=== PATIENT | female | born 1970 | race Caucasian/White ===

== ENCOUNTER 2019-06-28 14:24 | Inpatient (IN) | payer MEDICARE ==
[2019-06-28] MEDS ORDERED: NS 0.9% 1000 ML** 1,000 ML IV ONE ×2 (14:59→16:05)
--- NOTE | 2019-06-28 15:01 | ED ---
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 She states that she thinks her symptoms are related to her diabetes. she reports polyuria and polyphagia and polydypsia. She reports headache similar to her cluster headaches. Head still hurts and her eyes have an aura around them. Denies any neck pain or photophobia. She reports right flank pain /10. No aggravating or alleviating factors noted. Positive nausea, and vomiting. - History Of Current Complaint Chief Complaint: EDDiabeticProb Time Seen by Provider: 06/28/19 14:47 Hx Obtained From: Patient Onset/Duration: Sudden Onset, Still Present Timing: Constant, Days Severity Currently: Severe Severity Initially: Severe Aggravating Factor(s): nothing Alleviating Factor(s): nothing Associated Signs And Symptoms: Positive: Headache, Vomiting, Other - neg - neck pain, photophobia - Allergies/Home Medications Allergies/Adverse Reactions: Allergies Allergy/AdvReac Type Severity Reaction Status Date / Time No Known Allergies Allergy Verified 12/22/18 09:38 Home Medications: Home Medications Insulin Aspart [Novolog] 100 unit SC SEE INSTRUCTIONS 06/28/19 [History Confirmed 06/28/19] Insulin Glargine,Hum.rec.anlog [Basaglar Kwikpen U-100] 44 unit SUBCUT DAILY 03/09 [History Confirmed 06/28/19] Pregabalin [Lyrica] 75 mg PO BID 06/28/19 [History Confirmed 06/28/19] Propranolol TAB* [Inderal TAB*] 60 mg PO DAILY 06/28/19 [History Confirmed 06/28] Topiramate TAB(*) [Topamax 25 MG tab] 50 mg PO BID 06/28/19 [History Confirmed 06/28/19] PMH/Surg Hx/FS Hx/Imm Hx Endocrine/Hematology History: Reports: Hx Diabetes, Hx Thyroid Disease - HYPO Cardiovascular History: Reports: Hx Hypertension Denies: Hx Pacemaker/ICD History: Denies: Hx Dialysis, Hx Renal Disease Musculoskeletal History: Reports: Hx Arthritis - HANDS AND BACK, Hx Back Problems Sensory History: Reports: Hx Contacts or Glasses - GLASSES Denies: Hx Hearing Aid Opthamlomology History: Reports: Hx Contacts or Glasses - GLASSES Neurological History: Reports: Hx Migraine - CYCLIC WITH MENSES Denies: Other Neuro Impairments/Disorders Psychiatric History: Reports: Hx Anxiety, Hx Eating Disorder - "I binge eat, I think it's the insulin", Hx Depression, Hx Panic Disorder - ANXIETY Denies: Hx of Violent Episodes Against Others - Cancer History Hx Chemotherapy: No Hx Radiation Therapy: No - Surgical History Surgery Procedure, Year, and Place: RT EARDRUM TYMPANOPLASTY(NO IMPLANTS), SPLEEN REMOVED-GALL BLADDER-PANCREAS 80% REMOVAL, [facility] SURGERY right hemilaminectomy Jul 2014, [facility]-TUBAL LIGATION Hx Anesthesia Reactions: No Infectious Disease History: No Infectious Disease History: Denies: Traveled Outside the [place] in Last 30 Days - Family History Known Family History: Negative: Renal Disease - Social History Alcohol Use: None Substance Use Type: Reports: None Smoking Status (MU): Heavy Every Day Tobacco Smoker Type: Cigarettes Amount Used/How Often: 1/2 PACK PER DAY Length of Time of Smoking/Using Tobacco: 25 YRS Have You Smoked in the Last Year: Yes Review of Systems Positive: Chills Eyes: Negative Negative: Photophobia Cardiovascular: Negative Positive: Vomiting Musculoskeletal: Negative - neck pain Skin: Negative Positive: Headache All Other Systems Reviewed And Are Negative: Yes Physical Exam - Summary Physical Exam Summary: VITAL SIGNS: Reviewed. GENERAL: Patient is a well-developed and nourished female who is lying comfortable in the stretcher. Patient is not in any acute respiratory distress. HEAD AND FACE: No signs of trauma. No ecchymosis, hematomas or skull depressions. No sinus tenderness. EYES: PERRLA, EOMI x 2, No injected conjunctiva, no nystagmus, no photophobia. EARS: Hearing grossly intact. Ear canals and tympanic membranes are within normal limits. MOUTH: Dry oral mucosa. NECK: Supple, trachea is midline, no adenopathy, no JVD, no carotid bruit, no c- spine tenderness, neck with full ROM. No meningeal signs. CHEST: Symmetric, no tenderness at palpation. LUNGS: Clear to auscultation bilaterally. No wheezing or crackles. CVS: Regular rate and rhythm, S1 and S2 present, no murmurs or gallops appreciated. ABDOMEN: Soft, positive left flank tenderness. No signs of distention. No rebound, no guarding, and no masses palpated. Bowel sounds are normal. EXTREMITIES: FROM in all major joints, no edema, no cyanosis or clubbing. NEURO: Alert and oriented x 3. No acute neurological deficits. Speech is normal and follows commands. SKIN: Dry and warm. Increased in turgur of the skin. Triage Information Reviewed: Yes Vital Signs On Initial Exam: Initial Vitals Temp Pulse Resp BP Pulse Ox 98.1 F 76 14 73/51 99 06/28/19 14:39 06/28/19 14:39 06/28/19 14:39 06/28/19 14:39 06/28/19 14:39 Vital Signs Reviewed: Yes Procedures - Sedation Patient Received Moderate/Deep Sedation with Procedure: No Diagnostics - Vital Signs Vital Signs Temp Pulse Resp BP Pulse Ox 06/28/19 14:50 92/55 06/28/19 14:48 78 22 97 06/28/19 14:39 98.1 F 76 14 73/51 99 - Laboratory Result Diagrams: 06/29/19 02:58 06/29/19 02:58 Lab Statement: Any lab studies that have been ordered have been reviewed, and results considered in the medical decision making process. - Radiology CXR Radiology Interpretation Completed By: Radiologist Summary of Radiographic Findings: IMPRESSION: No acute process by radiograph. ED Physician has reviewed this report. - CT Brain CT CT Interpretation Completed By: Radiologist Summary of CT Findings: IMPRESSION: No acute intracranial abnormality. ED Physician has reviewed this report. CT A/P CT Interpretation Completed By: Radiologist Summary of CT Findings: IMPRESSION: 1. HYDRONEPHROSIS WITH A 5 MM CALCULUS IN THE MID LEFT URETER NEAR THE PELVIC BRIM. 2. THERE IS AN EDEMATOUS LEFT KIDNEY WITH EXTENSIVE STRANDING OF THE REGIONAL FAT PLANES. A REACTIVE ILEUS IS SUSPECTED. THIS CONSTELLATION OF FINDINGS RAISES SUSPICION FOR SUPERIMPOSED PYELONEPHRITIS (CORRELATE WITH INFLAMMATORY MARKERS). Re-Evaluation - Re-Evaluation First Eval Re-Evaluation Time: 16:11 Comment: Pt is now complaining of left flank pain. 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 She states that she thinks her symptoms are related to her diabetes. she reports polyuria and polyphagia and polydipsia. She reports headache similar to her cluster headaches. Head still hurts and her eyes have an aura around them. Denies any neck pain or photophobia. She reports right flank pain 8/10. No aggravating or alleviating factors noted. Positive nausea, and vomiting. In the ED course the patient was placed in a broadcast producer, 2 IV access was obtained, the patient was started with 2 L of IV fluids since the patient is hypotensive. Blood tests without any significant abnormality except for WBCs of 20.4, absolute neutrophils of 19.4, 14 bands. Sodium 128, potassium 3.3, chloride 91, BUN is 56, creatinine 2.7, glucose 260, lactic acid is 3.6, magnesium 1.1, AST 128, AST is 98, CRP 451, BNP 157. Chest x-ray impression: No active cardiopulmonary disease. In the ED course the patient with Zosyn since seems to be septic. Head CT impression: No acute intracranial pathology. Abdominal and pelvic CT IMPRESSION: 1. HYDRONEPHROSIS WITH A 5 MM CALCULUS IN THE MID LEFT URETER NEAR THE PELVIC BRIM. 2. THERE IS AN EDEMATOUS LEFT KIDNEY WITH EXTENSIVE STRANDING OF THE REGIONAL FAT PLANES. A REACTIVE ILEUS IS SUSPECTED. THIS CONSTELLATION OF FINDINGS RAISES SUSPICION FOR. SUPERIMPOSED PYELONEPHRITIS (CORRELATE WITH INFLAMMATORY MARKERS). At this time I discussed the case with Dr. Cast and he recommended to add Levaquin as well as medical clearance for the OR and admission by the hospitalist. I discussed the case with Amarilys Loo and he medically cleared and accepted the patient for admission. Patient BP is 91/62 wit a MAP of 71. - Diagnoses Provider Diagnoses: Ureteral calculus, left, Pyelonephritis, Sepsis, Acute renal failure, Hypomagnesemia - Physician Notifications Discussed Care Of Patient With: Anatoly Panda - Dr. Panda will admit pt to [facility]. Time Discussed With Above Provider: 18:03 Instructed by Provider To: Admit As Inpatient Discharge ED - Sign-Out/Discharge Documenting (check all that apply): Patient Departure - admit - Discharge Plan Condition: Stable Disposition: ADMITTED TO [facility] - Billing Disposition and Condition Condition: STABLE Disposition: Admitted to [facility] - Attestation Statements Document Initiated by Scribe: Yes Documenting Scribe: Valeriano Hargrove Provider For Whom Scribe is Documenting (Include Credential): Alvarado Chopra MD Scribe Attestation: I, Valeriano Hargrove, scribed for Alvarado Chopra MD on 06/29/19 at 1603. Scribe Documentation Reviewed: Yes Provider Attestation: The documentation as recorded by the scribe, Valeriano Hargrove accurately reflects the service I personally performed and the decisions made by me, Alvarado Chopra MD Status of Scribe Document: Viewed
[2019-06-28 15:22] LABS: Hematocrit 38 % (35-47); Hemoglobin 12.6 g/dL (12.0-16.0); Mean Corpuscular HGB Conc 34 g/dL (31-36); Mean Corpuscular Hemoglobin 32 pg (27-31); Mean Corpuscular Volume 95 fL (80-97); Mean Platelet Volume 8.7 fL (7.4-10.4); Platelet Count 206 10^3/uL (150-450); Red Blood Count 3.96 10^6 /uL (3.70-4.87); Red Cell Distribution Width 14 % (10-15); White Blood Count 20.4 10^3/uL (3.5-10.8)
[2019-06-28 15:40] LABS: ALT 93 U/L (7-52); AST 128 U/L (13-39); Albumin 3.6 g/dL (3.2-5.2); Alkaline Phosphatase 118 U/L (34-104); Anion Gap 12 mmol/L (2-11); BUN/Creatinine Ratio 20.7 (8-20); Blood Urea Nitrogen 56 mg/dL (6-24); C Reactive Protein 451.25 mg/L (<8.01); CO2 Carbon Dioxide 25 mmol/L (22-32); Calcium 9.2 mg/dL (8.6-10.3); Chloride 91 mmol/L (101-111); EGFR African American 22.6 (>60); EGFR Non-African American 18.7 (>60); Globulin 3.5 g/dL (2-4); Glucose 260 mg/dL (70-100); Magnesium 1.1 mg/dL (1.9-2.7); Potassium 3.3 mmol/L (3.5-5.0); Sodium 128 mmol/L (135-145); Total Protein 7.1 g/dL (6.4-8.9)
[2019-06-28] MEDS ORDERED: Potassium Chlor TAB* 20 MEQ TAB.ER PO ONE (16:04)
[2019-06-28] MEDS ORDERED: Magnesium Sulfate 2 GM IV* 2 GM/50 ML BAG IVPB ONE (16:04)
[2019-06-28] MEDS ORDERED: Piperacillin/Tazobac ADVAN(*) 3.375 GM in NS 0.9% 100 ML* 100 ML IVPB ONE (16:06)
[2019-06-28 16:15] LABS: ABS Basophils 0.1 10^3/ul (0-0.2); ABS Eosinophils 0.1 10^3/ul (0-0.6); ABS Lymphocytes 0.4 10^3/ul (1.0-4.8); ABS Monocytes 0.4 10^3/ul (0-0.8); ABS Neutrophils 19.4 10^3/ul (1.5-7.7); Eosinophil % 0.5 %; Lymphocyte % 1.9 %
[2019-06-28 16:16] LABS: Platelet Morphology Large
[2019-06-28] MEDS ORDERED: NS 0.9% 1000 ML** 2,000 ML IV ONE (17:23)
[2019-06-28] MEDS ORDERED: Levofloxacin 500 MG IVPREMIX(* 500 MG/100 ML BAG IVPB ONE (17:43)
[2019-06-28] MEDS ORDERED: Dextrose 50% VIAL 50 ml IV PUSH PRN (18:21)
[2019-06-28] MEDS ORDERED: Iohexol 180 (CONTRAST) 10 ML SDV IV ONE (18:25)
--- NOTE | 2019-06-28 18:33 | ADMNOTE ---
Subjective Date of Service: 06/28/19 Interval History: ADMISSION HISTORY AND PHYSICAL EXAM: Allergies Allergy/AdvReac Type Severity Reaction Status Date / Time No Known Allergies Allergy Verified 12/22/18 09:38 Home Medications Medication Instructions Recorded Confirmed Type Meloxicam 15 mg PO DAILY 07/27/14 06/28/19 History Hydrochlorothiazide TAB* 25 mg PO DAILY 03/16/15 06/28/19 History [Hydrodiuril TAB*] Venlafaxine HCl ER- 300 mg PO DAILY 08/17/15 06/28/19 History Levothyroxine TAB* [Synthroid TAB*] 50 mcg PO 0600 #30 tab 08/22/15 06/28/19 Rx Insulin Aspart [Novolog] 100 unit SC SEE INSTRUCTIONS 06/28/19 06/28/19 History Insulin Glargine,Hum.rec.anlog 44 unit SUBCUT DAILY 06/28/19 06/28/19 History [Basaglar Kwikpen U-100] Pregabalin [Lyrica] 75 mg PO BID 06/28/19 06/28/19 History Propranolol TAB* [Inderal TAB*] 60 mg PO DAILY 06/28/19 06/28/19 History Topiramate TAB(*) [Topamax 25 MG 50 mg PO BID 06/28/19 06/28/19 History tab] HPI: The patient was in her usual state of health until about 3 days ago when she developed L flank pain, N&V. She ate almost nothing the past 2 days. She stayed in bed all day yesterday. Today she was very dizzy when she stood up. Family History: Findings - unremarkable. Social History: Findings - , lives alone. No children. Smoker. No alcohol abuse. Her mother is her SDM. Past Medical History: Unchanged from Admission - Pancreas surgery for pancreatitis, included splenectomy. BTL, Tympanic membrane surgery Review of Systems - Measurements Intake and Output: Intake and Output Last 24 Hours 06/26/19 06/27/19 06/28/19 06/29/19 06:59 06:59 06:59 06:59 Intake Total 4100 Balance 4100 Intake: IV Fluids 4100 - Review of Systems Constitutional Symptoms: Negative: Weight Gain, Weight Loss, Weakness, Fatigue, Fever, Night Sweats, Unexplained Falls, Other Dermatology: Positive: Normal HEENT: Positive: Normal Eyes: Positive: Normal Thyroid: Positive: Normal Pulmonary: Positive: Normal Cardiology: Positive: Faintness Gastroenterology: Positive: Nausea, Vomiting Musculoskeletal: Positive: Joint Pain Endocrinology: Positive: Diabetes Mellitus Hematologic/Lymphatic: Negative: Anemia, Easy Bruising, Hx Leukemia, Hx Lymphoma, Use of Anticoagulant, Use of Antiplatelet Drugs, Other Neurology: Positive: Normal Psychiatry: Positive: Normal Allergic/Immunologic: Negative: Hx Anaphylaxis, Hx Angioedema, Hx Environmental, Hx Seasonal, Asthma, Hx HIV, Immunocompromise, Swollen Glands LymphNodes, Other Objective Active Medications: Dextrose (Dextrose 50% Vial 50 Ml*) 25 ml IV PUSH .FOR FS < 60 - SS PRN PRN Reason: FS < 60 Sodium Chloride (Ns 0.9% 1000 Ml) 2,000 mls @ 1,000 mls/hr IV .PER RATE ONE Stop: 06/28/19 19:22 Last Admin: 06/28/19 17:36 Dose: 2,000 mls/hr Levofloxacin/Dextrose (Levaquin 500 Mg Ivpremix(*)) 500 mg in 100 mls @ 100 mls /hr IVPB ED ONCE ONE; Protocol Stop: 06/28/19 18:42 Last Admin: 06/28/19 17:49 Dose: 100 mls/hr Piperacillin Sod/Tazobactam (Sod 3.375 gm/ Sodium Chloride) 100 mls @ 25 mls/ hr IVPB Q8H [facility] Insulin Glargine (Lantus(*)) 20 units SUBCUT Q24H [facility] Insulin Human Lispro (Humalog*) 0 units SUBCUT Q4HR [facility]; Protocol Levothyroxine Sodium (Synthroid Tab*) 50 mcg PO 0600 [facility] Meloxicam (Mobic(Nf)) 15 mg PO DAILY [facility] Non-Formulary Medication (Venlafaxine Hcl Er-) 300 mg PO DAILY [facility] Topiramate (Topamax(*)) 50 mg PO BID [facility] Vital Signs - 8 hr 06/28/19 06/28/19 06/28/19 14:39 14:48 14:50 Temperature 98.1 F Pulse Rate 76 78 Respiratory 14 22 Rate Blood Pressure 73/51 92/55 (mmHg) O2 Sat by Pulse 99 97 Oximetry 06/28/19 06/28/19 06/28/19 15:00 15:19 15:49 Temperature Pulse Rate 77 77 76 Respiratory 31 31 28 Rate Blood Pressure 85/54 76/58 (mmHg) O2 Sat by Pulse 98 76 85 Oximetry 06/28/19 06/28/19 06/28/19 15:50 15:52 16:00 Temperature Pulse Rate 75 79 Respiratory 25 27 35 Rate Blood Pressure 82/62 81/59 (mmHg) O2 Sat by Pulse 100 Oximetry 06/28/19 06/28/19 06/28/19 16:04 16:08 16:32 Temperature Pulse Rate 76 75 121 Respiratory 31 31 28 Rate Blood Pressure 76/55 82/56 93/65 (mmHg) O2 Sat by Pulse 98 99 98 Oximetry 06/28/19 06/28/19 06/28/19 16:53 17:00 17:02 Temperature Pulse Rate 71 73 73 Respiratory 26 35 24 Rate Blood Pressure 85/59 86/71 (mmHg) O2 Sat by Pulse 98 100 Oximetry 06/28/19 06/28/19 06/28/19 17:17 17:35 18:00 Temperature Pulse Rate 73 68 64 Respiratory 28 30 34 Rate Blood Pressure 95/65 91/66 (mmHg) O2 Sat by Pulse 99 99 99 Oximetry 06/28/19 06/28/19 06/28/19 18:02 18:05 18:15 Temperature 97 F Pulse Rate 64 65 64 Respiratory 18 21 33 Rate Blood Pressure 95/63 89/62 89/62 (mmHg) O2 Sat by Pulse 100 98 99 Oximetry Appearance: Alert, on ED stretcher with legs elevated. In good spirits. Looks comfortable. Eyes: No Scleral Icterus Ears/Nose/Mouth/Throat: Clear Oropharnyx, Mucous Membranes Moist Neck: NL Appearance and Movements; NL JVP, No Thyroid Enlargement, Masses Respiratory: Symmetrical Chest Expansion and Respiratory Effort, Clear to Auscultation, Clear to Percussion Cardiovascular: NL Sounds; No Murmurs; No JVD, RRR, No Edema, - Abdominal: NL Sounds; No Tenderness; No Distention, No Hepatosplenomegaly, - Extremities: No Edema, No Clubbing, Cyanosis, - Skin: No Rash or Ulcers, No Nodules or Sclerosis, - Neurological: Alert and Oriented x 3, NL Sensation Result Diagrams: 06/28/19 15:16 06/28/19 15:16 Assess/Plan/Problems-Billing Assessment: - Patient Problems (1) Pyelonephritis Current Visit: Yes Status: Acute Code(s): N12 - TUBULO-INTERSTITIAL NEPHRITIS, NOT SPCF ACUTE OR CHRONIC SNOMED Code(s): 31598268 Comment: With L ureteral stone. Patient left to OR about 6 PM for stent insertion. Received levofloxacin in ED, pip/aurora ordered. (2) Severe sepsis Current Visit: Yes Status: Acute Code(s): A41.9 - SEPSIS, UNSPECIFIED ORGANISM; R65.20 - SEVERE SEPSIS WITHOUT SEPTIC SHOCK SNOMED Code(s): 61134795 Comment: With hypotension. See sepsis note. ICU care. (3) Diabetes Current Visit: Yes Status: Acute Code(s): E11.9 - TYPE 2 DIABETES MELLITUS WITHOUT COMPLICATIONS SNOMED Code(s): 90095025 Comment: Evening glargine insulin reduced to 20 U to start. Lispro SS q 4 hr. (4) Tobacco abuse Current Visit: Yes Status: Acute Code(s): Z72.0 - TOBACCO USE SNOMED Code( s): 972979346 Comment: Patient advised to quit smoking and avoid second hand smoke. Pt declined NRT 06/28. (5) Hypothyroid Current Visit: Yes Status: Acute Code(s): E03.9 - HYPOTHYROIDISM, UNSPECIFIED SNOMED Code(s): 62388947 Comment: Add on TSH requested.
--- NOTE | 2019-06-28 18:44 | PN ---
Sepsis Event Evaluation Current Stage of Sepsis: Septic Shock Vital Signs - Last 12 Hours: Vital Signs - 12 hr Temp Pulse Resp BP Pulse Ox 06/28/19 18:15 97 F 64 33 89/62 99 06/28/19 18:05 65 21 89/62 98 06/28/19 18:02 64 18 95/63 100 06/28/19 18:00 64 34 99 06/28/19 17:35 68 30 91/66 99 06/28/19 17:17 73 28 95/65 99 06/28/19 17:02 73 24 86/71 100 06/28/19 17:00 73 35 06/28/19 16:53 71 26 85/59 98 06/28/19 16:32 121 28 93/65 98 06/28/19 16:08 75 31 82/56 99 06/28/19 16:04 76 31 76/55 98 06/28/19 16:00 79 35 06/28/19 15:52 75 27 81/59 100 06/28/19 15:50 25 82/62 06/28/19 15:49 76 28 76/58 85 06/28/19 15:19 77 31 85/54 76 06/28/19 15:00 77 31 98 06/28/19 14:50 92/55 06/28/19 14:48 78 22 97 06/28/19 14:39 98.1 F 76 14 73/51 99 Lactic Acid: 06/28/19 15:16 Lactic Acid 3.6 H* - Cardiopulmonary Exam Capillary Refill: Immediate Respiratory: Symmetrical Chest Expansion and Respiratory Effort, Clear to Auscultation, Clear to Percussion Cardiovascular: NL Sounds; No Murmurs; No JVD, RRR, No Edema, - - Peripheral Pulse Exam Radial Pulses: Right Normal Pedal Pulses: Right Normal - Skin Exam Skin Exam: Normal Turgor - [place] Coma Scale Best Eye Response: 4 - Spontaneous Best Motor Response: 6 - Obeys Commands Best Verbal Response: 5 - Oriented - Improved after 5 L NSS. Coma Scale Total: 15 Assess/Plan/Problems-Billing Assessment: - Patient Problems (1) Pyelonephritis Status: Acute Code(s): N12 - TUBULO-INTERSTITIAL NEPHRITIS, NOT SPCF ACUTE OR CHRONIC SNOMED Code(s): 80614957 Comment: With L ureteral stone. Patient left to OR about 6 PM for stent insertion. Received levofloxacin in ED, pip/aurora ordered. (2) Severe sepsis Status: Acute Code(s): A41.9 - SEPSIS, UNSPECIFIED ORGANISM; R65.20 - SEVERE SEPSIS WITHOUT SEPTIC SHOCK SNOMED Code(s): 65881516 Comment: With hypotension. See sepsis note. ICU care. (3) Diabetes Status: Acute Code(s): E11.9 - TYPE 2 DIABETES MELLITUS WITHOUT COMPLICATIONS SNOMED Code(s): 42490264 Comment: Evening glargine insulin reduced to 20 U to start. Lispro SS q 4 hr. (4) Tobacco abuse Status: Acute Code(s): Z72.0 - TOBACCO USE SNOMED Code(s): 050671090 Comment: Patient advised to quit smoking and avoid second hand smoke. Pt declined NRT 06/28. (5) Hypothyroid Status: Acute Code(s): E03.9 - HYPOTHYROIDISM, UNSPECIFIED SNOMED Code(s): 40173438 Comment: Add on TSH requested.
[2019-06-28] MEDS ORDERED: Midazolam* 1 MG/ML 5 ML VIAL (5 MG) ONE (18:58)
[2019-06-28] MEDS ORDERED: fentaNYL* 50 MCG/ML 2 ML VIAL (100 MCG VIAL) ONE (18:58)
[2019-06-28] MEDS ORDERED: Piperacillin/Tazobac ADVAN(*) 3.375 GM in NS 0.9% 100 ML* 100 ML IVPB SCH (19:00)
[2019-06-28] MEDS ORDERED: EPHEDrine (Pressors)* 50 MG/ML VIAL ONE (19:17)
[2019-06-28] MEDS ORDERED: Propofol* 10 MG/ML 20 ML BTL ONE (19:17)
[2019-06-28] MEDS ORDERED: Naloxone* 0.4 MG/ML 1 ML VIAL IV PRN (19:37)
--- NOTE | 2019-06-28 20:42 | OP ---
CC: Alvin Mosher NP * DATE OF OPERATION: 06/28/19 - ROOM #ICU-13 DATE OF : 66 SURGEON: Jovani Cast MD. ANESTHESIOLOGIST: Dr. Singletary. ANESTHESIA: Intravenous sedation. PRE-OP DIAGNOSES: 1. Left hydronephrosis. 2. Obstructing calculus, left ureter. 3. Urosepsis. POST-OP DIAGNOSES: 1. Left hydronephrosis. 2. Obstructing calculus, left ureter. 3. Urosepsis. OPERATIVE PROCEDURE: Cystoscopy, left retrograde pyelogram, and left stent insertion. COMPLICATIONS: None. STENT USED: 7-[place] stent, left ureter. SPECIMEN: Urine from left kidney for culture and sensitivity. INDICATIONS: Pearl Mccray is a 48-year-old diabetic who presented to the emergency room with left flank pain, nausea, vomiting, and was noted to be hypotensive and tachycardic with a picture consistent with an obstructing septic calculus. She is being brought in for urgent left stent insertion and will later on require a definitive procedure to treat the stone once the infection is controlled. OPERATIVE FINDINGS: High-grade obstruction with purulent urine drain from left renal pelvis. POSTOPERATIVE CONDITION: Stable. DESCRIPTION OF PROCEDURE: After administration of intravenous sedation, the patient was placed in dorsal lithotomy position. Sequential compression devices were in place and functioning. Initial cystoscopy revealed a very little urine in the urinary bladder and a guidewire was introduced into the left ureter. An open-ended catheter was advanced into the renal pelvis and about 15 cc of purulent urine was drained out. A specimen was sent for culture and sensitivity. Limited retrograde pyelogram revealed very mild fullness of the left collecting system. A 7-[place] African stent was introduced and positioned under fluoroscopy with good proximal and distal positioning obtained. A 20- [place] Remy catheter was placed for bladder drainage. The patient tolerated the procedure satisfactorily and was transferred back to the recovery area in stable condition. [id number]/[facility] #: [id number] [facility]
[2019-06-28] MEDS ORDERED: Topiramate TAB(*) 25 MG PO SCH (21:00)
[2019-06-28] MEDS ORDERED: Insulin GLARGINE(*) 1 UNITS UNIT SUBCUT SCH (21:00)
[2019-06-28] MEDS: Insulin LISPRO* 1 UNITS UNIT SUBCUT SCH (21:38)
[2019-06-28 21:49] LABS: Hematocrit 31 % (35-47); Hemoglobin 10.8 g/dL (12.0-16.0); Mean Corpuscular HGB Conc 34 g/dL (31-36); Mean Corpuscular Hemoglobin 33 pg (27-31); Mean Corpuscular Volume 96 fL (80-97); Mean Platelet Volume 9.1 fL (7.4-10.4); Platelet Count 149 10^3/uL (150-450); Red Blood Count 3.29 10^6 /uL (3.70-4.87); Red Cell Distribution Width 13 % (10-15)
[2019-06-28] MEDS: Topiramate TAB(*) 25 MG PO SCH (21:53)
[2019-06-28 22:09] LABS: Calcium 7.2 mg/dL (8.6-10.3); EGFR African American 31.2 (>60); EGFR Non-African American 25.8 (>60); Potassium 3.8 mmol/L (3.5-5.0)
[2019-06-28 22:38] LABS: ABS Lymphocytes 0.6 10^3/ul (1.0-4.8); ABS Monocytes 0.3 10^3/ul (0-0.8); ABS Neutrophils 19.1 10^3/ul (1.5-7.7); Eosinophil % 0.2 %; Lymphocyte % 2.8 %
[2019-06-28] MEDS: NS 0.9% 1000 ML** 1,000 ML IV SCH (23:10)
[2019-06-28] MEDS: Piperacillin/Tazobac ADVAN(*) 3.375 GM in NS 0.9% 100 ML* 100 ML IVPB SCH (23:32)
[2019-06-28] MEDS ORDERED: Zosyn per Pharmacy* NOTE FOLLOW UP PRN (23:32)
[2019-06-29] MEDS: fentaNYL* 50 MCG/ML 2 ML VIAL (100 MCG VIAL) IV SLOW PU SCH ×2 (00:33→06:08)
[2019-06-29] MEDS: Insulin LISPRO* 1 UNITS UNIT SUBCUT SCH ×5 (02:15→21:37)
[2019-06-29] MEDS ORDERED: Acetaminophen IV 1GM/100ML * 1,000 MG/100 ML VIAL IVPB ONE (02:41)
[2019-06-29 03:10] LABS: Hematocrit 33 % (35-47); Hemoglobin 11.2 g/dL (12.0-16.0); Mean Corpuscular HGB Conc 34 g/dL (31-36); Mean Corpuscular Hemoglobin 33 pg (27-31); Mean Corpuscular Volume 95 fL (80-97); Mean Platelet Volume 9.3 fL (7.4-10.4); Platelet Count 151 10^3/uL (150-450); Red Blood Count 3.43 10^6 /uL (3.70-4.87); Red Cell Distribution Width 13 % (10-15); White Blood Count 17.8 10^3/uL (3.5-10.8)
[2019-06-29 03:24] LABS: BUN/Creatinine Ratio 23.9 (8-20); Calcium 7.4 mg/dL (8.6-10.3); EGFR African American 31.7 (>60); EGFR Non-African American 26.2 (>60); Potassium 3.7 mmol/L (3.5-5.0)
[2019-06-29] MEDS ORDERED: Levothyroxine INJ* 100 MCG/5 ML VIAL IV SCH (06:00)
[2019-06-29] MEDS ORDERED: Levothyroxine TAB* 50 MCG TAB PO SCH (06:00)
[2019-06-29] MEDS: Piperacillin/Tazobac ADVAN(*) 3.375 GM in NS 0.9% 100 ML* 100 ML IVPB SCH ×3 (06:09→21:35)
[2019-06-29] MEDS: Levothyroxine TAB* 50 MCG TAB PO SCH (06:09)
[2019-06-29] MEDS: NS 0.9% 1000 ML** 1,000 ML IV SCH ×2 (07:55→17:59)
[2019-06-29] MEDS ORDERED: Influenza VAC *QUAD* 2019-20* 0.5 ML SYRINGE IM ONE (08:00)
[2019-06-29] MEDS: Venlafaxine EXT RELEASE CAP* 75 MG PO SCH (08:35)
[2019-06-29] MEDS: CMCS:Meloxicam(NF) 7.5 MG TAB PO SCH (08:35)
[2019-06-29] MEDS: Topiramate TAB(*) 25 MG PO SCH ×2 (08:35→21:36)
[2019-06-29] MEDS ORDERED: Magnesium Sulfate 2 GM IV* 2 GM/50 ML BAG IVPB ONE (08:37)
[2019-06-29] MEDS ORDERED: Insulin GLARGINE(*) 1 UNITS UNIT SUBCUT SCH ×2 (08:40→09:00)
--- NOTE | 2019-06-29 08:49 | PN ---
Subjective Date of Service: 06/29/19 Interval History: Mild L flank/abd pain. about 3 loose stools so far today. Appetite good. Family History: Findings - unremarkable. Social History: Findings - , lives alone. No children. Smoker. No alcohol abuse. Her mother is her SDM. Past Medical History: Unchanged from Admission - Pancreas surgery for pancreatitis, included splenectomy. BTL, Tympanic membrane surgery Objective Active Medications: Hydrocodone Bitart/Acetaminophen ([place] 5-325 Tab*) 1 tab PO Q3H PRN PRN Reason: PAIN - MODERATE Dextrose (Dextrose 50% Vial 50 Ml*) 25 ml IV PUSH .FOR FS < 60 - SS PRN PRN Reason: FS < 60 Piperacillin Sod/Tazobactam (Sod 3.375 gm/ Sodium Chloride) 100 mls @ 25 mls/ hr IVPB Q8H [facility] Last Admin: 06/29/19 06:09 Dose: 25 mls/hr Potassium Chloride/Dextrose (D5w Ns 0.9% 20meq Kcl 1000 Ml*) 1,000 mls @ 100 mls/hr IV PER RATE [facility] Magnesium Sulfate (Magnesium Sulfate 2 Gm Iv*) 2 gm in 50 mls @ 50 mls/hr IVPB ONCE ONE Stop: 06/29/19 09:36 Insulin Glargine (Lantus(*)) 30 units SUBCUT Q24HR [facility] Insulin Human Lispro (Humalog*) 0 units SUBCUT ACHS [facility]; Protocol Levothyroxine Sodium (Synthroid Tab*) 50 mcg PO 0600 [facility] Last Admin: 06/29/19 06:09 Dose: 50 mcg Meloxicam (Mobic(Nf)) 15 mg PO DAILY [facility] Last Admin: 06/29/19 08:35 Dose: 15 mg Pharmacy Consult (Zosyn Per Pharmacy*) 1 note FOLLOW UP . PRN PRN Reason: PER PROTOCOL Topiramate (Topamax(*)) 50 mg PO BID [facility] Last Admin: 06/29/19 08:35 Dose: 50 mg Venlafaxine HCl (Effexor Xr Cap*) 300 mg PO DAILY [facility] Last Admin: 06/29/19 08:35 Dose: 300 mg Vital Signs - 8 hr 06/29/19 06/29/19 06/29/19 00:45 01:00 01:15 Temperature Pulse Rate 76 77 79 Respiratory 32 32 32 Rate Blood Pressure 123/85 131/86 140/88 (mmHg) O2 Sat by Pulse 92 93 91 Oximetry 06/29/19 06/29/19 06/29/19 01:30 01:45 02:00 Temperature Pulse Rate 79 79 81 Respiratory 35 34 37 Rate Blood Pressure 144/85 138/86 140/90 (mmHg) O2 Sat by Pulse 91 91 92 Oximetry 06/29/19 06/29/19 06/29/19 02:15 02:25 02:30 Temperature 105.9 F 104.0 F Pulse Rate 82 81 Respiratory 39 38 Rate Blood Pressure 142/84 150/80 (mmHg) O2 Sat by Pulse 91 92 Oximetry 06/29/19 06/29/19 06/29/19 02:46 03:00 03:01 Temperature Pulse Rate 80 78 78 Respiratory 33 33 34 Rate Blood Pressure 130/81 150/89 (mmHg) O2 Sat by Pulse 88 98 94 Oximetry 06/29/19 06/29/19 06/29/19 03:16 03:30 03:46 Temperature Pulse Rate 77 74 71 Respiratory 47 35 38 Rate Blood Pressure 140/83 131/88 135/84 (mmHg) O2 Sat by Pulse 87 90 91 Oximetry 06/29/19 06/29/19 06/29/19 03:48 03:54 04:00 Temperature 104.1 F 99.7 F Pulse Rate 68 Respiratory 32 Rate Blood Pressure (mmHg) O2 Sat by Pulse 92 Oximetry 06/29/19 06/29/19 06/29/19 04:01 04:15 04:30 Temperature Pulse Rate 69 68 65 Respiratory 29 30 29 Rate Blood Pressure 125/84 140/99 124/88 (mmHg) O2 Sat by Pulse 90 93 94 Oximetry 06/29/19 06/29/19 06/29/19 04:45 05:00 05:15 Temperature Pulse Rate 62 62 61 Respiratory 26 24 25 Rate Blood Pressure 137/88 139/89 138/88 (mmHg) O2 Sat by Pulse 94 96 96 Oximetry 06/29/19 06/29/19 06/29/19 05:31 05:45 06:00 Temperature Pulse Rate 63 60 58 Respiratory 38 30 26 Rate Blood Pressure 133/83 138/88 (mmHg) O2 Sat by Pulse 96 94 94 Oximetry 06/29/19 06/29/19 06/29/19 06:01 06:08 06:16 Temperature Pulse Rate 58 57 Respiratory 29 31 23 Rate Blood Pressure 145/94 136/92 (mmHg) O2 Sat by Pulse 93 94 Oximetry 06/29/19 06/29/19 06/29/19 06:30 06:46 07:00 Temperature Pulse Rate 56 55 Respiratory 23 21 26 Rate Blood Pressure 147/99 145/96 (mmHg) O2 Sat by Pulse 95 97 Oximetry 06/29/19 06/29/19 06/29/19 07:02 07:32 08:00 Temperature 97.7 F Pulse Rate 55 55 Respiratory 28 22 19 Rate Blood Pressure 124/70 148/94 (mmHg) O2 Sat by Pulse 94 93 Oximetry 06/29/19 06/29/19 08:10 08:15 Temperature Pulse Rate 55 53 Respiratory 18 29 Rate Blood Pressure 144/89 140/97 (mmHg) O2 Sat by Pulse 97 93 Oximetry Oxygen Devices in Use Now: Nasal Cannula Appearance: Alert, partly up in ICU bed. In good spirits, looks comfortable. Eyes: No Scleral Icterus Neck: NL Appearance and Movements; NL JVP, No Thyroid Enlargement, Masses Respiratory: Symmetrical Chest Expansion and Respiratory Effort, Clear to Auscultation, Clear to Percussion Cardiovascular: NL Sounds; No Murmurs; No JVD, RRR, No Edema, - Abdominal: No Hepatosplenomegaly, - - Nl BS. mildly tender L abd Extremities: No Edema, No Clubbing, Cyanosis, - Skin: No Rash or Ulcers, No Nodules or Sclerosis, - Neurological: Alert and Oriented x 3, NL Sensation Result Diagrams: 06/29/19 02:58 06/29/19 02:58 Microbiology and Other Data: Microbiology 06/28/19 21:33 Nasal Screen MRSA (PCR) - Final Nasal Mrsa Not Detected 06/28/19 19:20 Gram Stain - Final Misc Source (See Comment) Assess/Plan/Problems-Billing Assessment: - Patient Problems (1) Pyelonephritis Current Visit: No Status: Acute Code(s): N12 - TUBULO-INTERSTITIAL NEPHRITIS , NOT SPCF ACUTE OR CHRONIC SNOMED Code(s): 05817967 Comment: With L ureteral stone. Patient had stent insertion 06/28 about 6 PM . Received levofloxacin in ED, pip/aurora ordered. C&S pending. U/A shows 4+ GNB. (2) Severe sepsis Current Visit: No Status: Acute Code(s): A41.9 - SEPSIS, UNSPECIFIED ORGANISM; R65.20 - SEVERE SEPSIS WITHOUT SEPTIC SHOCK SNOMED Code(s): 25504847 Comment: Shock resolved. Continue pip/aurora. (3) Diabetes Current Visit: No Status: Acute Code(s): E11.9 - TYPE 2 DIABETES MELLITUS WITHOUT COMPLICATIONS SNOMED Code(s): 13410140 Comment: Evening glargine insulin increased to 30 U to start 06/29. Lispro SS achs (4) Tobacco abuse Current Visit: No Status: Acute Code(s): Z72.0 - TOBACCO USE SNOMED Code(s ): 003304314 Comment: Patient advised to quit smoking and avoid second hand smoke. Pt declined NRT 06/28. (5) Hypothyroid Current Visit: No Status: Acute Code(s): E03.9 - HYPOTHYROIDISM, UNSPECIFIED SNOMED Code(s): 83212821 Comment: Add on TSH 0.90 on 06/28/19. (6) EUGENE (acute kidney injury) Current Visit: Yes Status: Acute Code(s): N17.9 - ACUTE KIDNEY FAILURE, UNSPECIFIED SNOMED Code(s): 89691422 Comment: Improved. Continue IV fluids. BMP 06/30. (7) Hypomagnesemia Current Visit: Yes Status: Acute Code(s): E83.42 - HYPOMAGNESEMIA SNOMED Code(s): 889886373 Comment: Received total 4 gm IV mag sulfate. Mg++ level 06/30.
[2019-06-29] MEDS ORDERED: D5W NS 0.9% 20Meq KCL 1000 ML* 1,000 ML IV SCH (09:00)
[2019-06-29] MEDS ORDERED: Meloxicam(NF) 15 MG TAB PO SCH (09:00)
[2019-06-29] MEDS ORDERED: VENLAFAXINE HCL PO SCH (09:00)
[2019-06-29] MEDS: HYDROcodone/ACETAMIN 5-325 MG* 1 TAB PO PRN ×4 (10:10→21:36)
[2019-06-29] MEDS ORDERED: Insulin GLARGINE(*) 1 UNITS UNIT SUBCUT ONE (17:49)
[2019-06-30] MEDS: HYDROcodone/ACETAMIN 5-325 MG* 1 TAB PO PRN ×6 (00:36→21:16)
[2019-06-30] MEDS: Piperacillin/Tazobac ADVAN(*) 3.375 GM in NS 0.9% 100 ML* 100 ML IVPB SCH (06:02)
[2019-06-30] MEDS: Levothyroxine TAB* 50 MCG TAB PO SCH (06:03)
[2019-06-30] MEDS: NS 0.9% 1000 ML** 1,000 ML IV SCH (06:05)
[2019-06-30 06:36] LABS: Hematocrit 31 % (35-47); Hemoglobin 10.6 g/dL (12.0-16.0); Mean Corpuscular HGB Conc 35 g/dL (31-36); Mean Corpuscular Hemoglobin 32 pg (27-31); Mean Corpuscular Volume 94 fL (80-97); Mean Platelet Volume 9.9 fL (7.4-10.4); Platelet Count 118 10^3/uL (150-450); Red Blood Count 3.29 10^6 /uL (3.70-4.87); Red Cell Distribution Width 14 % (10-15); White Blood Count 13.1 10^3/uL (3.5-10.8)
[2019-06-30 06:48] LABS: BUN/Creatinine Ratio 22.5 (8-20); Calcium 7.3 mg/dL (8.6-10.3); EGFR African American 36.5 (>60); EGFR Non-African American 30.2 (>60); Magnesium 1.9 mg/dL (1.9-2.7)
[2019-06-30 06:54] LABS: Potassium 2.5 mmol/L (3.5-5.0)
[2019-06-30 07:03] LABS: ABS Eosinophils 0.2 10^3/ul (0-0.6); ABS Lymphocytes 0.6 10^3/ul (1.0-4.8); ABS Monocytes 0.2 10^3/ul (0-0.8); ABS Neutrophils 12.1 10^3/ul (1.5-7.7); Eosinophil % 1.5 %; Lymphocyte % 4.4 %; Nucleated Red Blood Cells % 0.3
[2019-06-30] MEDS ORDERED: Potassium Chlor TAB* 20 MEQ TAB.ER PO ONE ×2 (08:00→09:52)
[2019-06-30] MEDS: Insulin GLARGINE(*) 1 UNITS UNIT SUBCUT SCH (08:08)
[2019-06-30] MEDS: Insulin LISPRO* 1 UNITS UNIT SUBCUT SCH ×4 (08:08→21:41)
[2019-06-30] MEDS: Venlafaxine EXT RELEASE CAP* 75 MG PO SCH (08:12)
[2019-06-30] MEDS: Topiramate TAB(*) 25 MG PO SCH ×2 (08:12→21:16)
[2019-06-30] MEDS: CMCS:Meloxicam(NF) 7.5 MG TAB PO SCH (08:13)
[2019-06-30] MEDS ORDERED: Influenza VAC *QUAD* 2019-20* 0.5 ML SYRINGE IM ONE (09:00)
--- NOTE | 2019-06-30 09:10 | PN ---
Subjective Date of Service: 06/30/19 Interval History: HOSPITALIST PROGRESS NOTE Patient seen and examined at bedside. Care reviewed and d/w Zina Go RN. She feels a little better today. She still has left flank pain, but less intense than on admission. Mild nausea, but appetite is good, tolerating diet well. Family History: Unchanged from Admission Social History: Unchanged from Admission Past Medical History: Unchanged from Admission Objective Active Medications: Hydrocodone Bitart/Acetaminophen ([place] 5-325 Tab*) 1 tab PO Q3H PRN PRN Reason: PAIN - MODERATE Last Admin: 06/30/19 08:12 Dose: 1 tab Dextrose (Dextrose 50% Vial 50 Ml*) 25 ml IV PUSH .FOR FS < 60 - SS PRN PRN Reason: FS < 60 Piperacillin Sod/Tazobactam (Sod 3.375 gm/ Sodium Chloride) 100 mls @ 25 mls/ hr IVPB Q8H [facility] Last Admin: 06/30/19 06:02 Dose: 25 mls/hr Sodium Chloride (Ns 0.9% 1000 Ml) 1,000 mls @ 100 mls/hr IV PER RATE [facility] Last Admin: 06/30/19 06:05 Dose: 100 mls/hr Insulin Glargine (Lantus(*)) 38 units SUBCUT Q24HR [facility] Last Admin: 06/30/19 08:08 Dose: 38 unit Insulin Human Lispro (Humalog*) 0 units SUBCUT ACHS [facility]; Protocol Last Admin: 06/30/19 08:08 Dose: 1 units Levothyroxine Sodium (Synthroid Tab*) 50 mcg PO 0600 [facility] Last Admin: 06/30/19 06:03 Dose: 50 mcg Meloxicam (Mobic(Nf)) 15 mg PO DAILY [facility] Last Admin: 06/30/19 08:13 Dose: 15 mg Pharmacy Consult (Zosyn Per Pharmacy*) 1 note FOLLOW UP . PRN PRN Reason: PER PROTOCOL Topiramate (Topamax(*)) 50 mg PO BID [facility] Last Admin: 06/30/19 08:12 Dose: 50 mg Venlafaxine HCl (Effexor Xr Cap*) 300 mg PO DAILY [facility] Last Admin: 06/30/19 08:12 Dose: 300 mg Vital Signs - 8 hr 06/30/19 06/30/19 06/30/19 03:00 04:07 06:39 Temperature 97.3 F Pulse Rate 66 Respiratory 18 20 18 Rate Blood Pressure 132/77 (mmHg) O2 Sat by Pulse 98 Oximetry 06/30/19 06/30/19 08:03 08:12 Temperature 98.4 F Pulse Rate 66 Respiratory 20 16 Rate Blood Pressure 111/67 (mmHg) O2 Sat by Pulse 95 Oximetry Oxygen Devices in Use Now: Nasal Cannula - 2 liters Appearance: Middle aged overweight lady sitting up in bed in NAD. Eyes: No Scleral Icterus Ears/Nose/Mouth/Throat: Mucous Membranes Moist Neck: Trachea Midline Respiratory: Clear to Auscultation Cardiovascular: NL Sounds; No Murmurs; No JVD, RRR Abdominal: - - Soft, NT, ND, BS+, mild to moderate CVA tenderness on the left Extremities: No Edema Neurological: Alert and Oriented x 3, NL Muscle Strength and Tone Result Diagrams: 06/30/19 05:57 06/30/19 09:00 Microbiology and Other Data: Microbiology 06/28/19 21:33 Nasal Screen MRSA (PCR) - Final Nasal Mrsa Not Detected 06/28/19 19:20 Gram Stain - Final Misc Source (See Comment) Assess/Plan/Problems-Billing Assessment: Mrs Mccray is a 48yo F with PMH of type 2 DM, HTN, hypothyroidism, migraines, anxiety, who presented to ED with c/o N/V, found to have uncontrolled DM and nephrolithiasis with associated hydronephrosis and pyelonephritis, s/o left ureteral stent. - Patient Problems (1) Severe sepsis Comment: - Present on admission with leukocytosis, fever, tachycardia, and lactic acidosis. - Source is pyelonephritis. - Severe sepsis is resolved. (2) Pyelonephritis Comment: - With Left ureteral stone/hydronephrosis s/p stent insertion 06/28. - Urine culture grew pansensitivie E. coli - d/c Zosyn and start Ceftriaxone. (3) Diabetes Comment: - Check A1c. - Controlled in the hospital - continue Lantus 38 units/day with Lispro SS. (4) Hypothyroid Comment: - Check TSH. - Continue Levothyroxine. (5) Hypokalemia Comment: - EKG shows sinus bradycardia, but no other changes. - Monitor on Telemetry. - Replete potassium. (6) Mood disorder Comment: - Continue Venlafaxine. (7) Tobacco abuse Comment: - Patient advised to quit smoking and avoid second hand smoke. Pt declined NRT 06/28. (8) DVT prophylaxis Comment: - SQ heparin. (9) Physical deconditioning Comment: - PT/OT consults. (10) Full code status Status and Disposition: Inpatient.
[2019-06-30 09:41] LABS: BUN/Creatinine Ratio 22.2 (8-20); Calcium 7.3 mg/dL (8.6-10.3); EGFR Non-African American 30.6 (>60)
[2019-06-30 09:46] LABS: Potassium 2.6 mmol/L (3.5-5.0)
[2019-06-30] MEDS: KCL 10 MEQ/50 ML IVPREMIX* 10 MEQ/50 ML BAG IV SCH ×3 (10:33→12:55)
[2019-06-30] MEDS: cefTRIAXone(*) 1 GM in NS 0.9% 50 ML* 50 ML IVPB SCH (14:18)
[2019-06-30] MEDS: Heparin VIAL(*) 5000 UNITS/ML VIAL (FIVE THOUSAND) SUBCUT SCH ×2 (14:18→21:42)
[2019-06-30 17:18] LABS: Calcium 7.1 mg/dL (8.6-10.3); Potassium 4.1 mmol/L (3.5-5.0)
[2019-06-30 17:23] LABS: EGFR African American 33.9 (>60)
[2019-06-30] MEDS ORDERED: Famotidine TAB* 20 MG PO ONE (23:28)
[2019-07-01] MEDS: NS 0.9% 1000 ML** 1,000 ML IV SCH ×2 (02:13→12:58)
[2019-07-01] MEDS: HYDROcodone/ACETAMIN 5-325 MG* 1 TAB PO PRN ×4 (02:16→23:05)
[2019-07-01] MEDS: Heparin VIAL(*) 5000 UNITS/ML VIAL (FIVE THOUSAND) SUBCUT SCH ×3 (05:40→21:33)
[2019-07-01] MEDS: Levothyroxine TAB* 50 MCG TAB PO SCH (05:41)
[2019-07-01 07:12] LABS: Hematocrit 30 % (35-47); Hemoglobin 10.3 g/dL (12.0-16.0); Mean Corpuscular HGB Conc 34 g/dL (31-36); Mean Corpuscular Hemoglobin 32 pg (27-31); Mean Corpuscular Volume 95 fL (80-97); Platelet Count 108 10^3/uL (150-450); Red Cell Distribution Width 14 % (10-15); White Blood Count 12.7 10^3/uL (3.5-10.8)
[2019-07-01 07:26] LABS: Potassium 3.4 mmol/L (3.5-5.0)
[2019-07-01 07:27] LABS: BUN/Creatinine Ratio 21.1 (8-20); Calcium 7.4 mg/dL (8.6-10.3); EGFR African American 38.2 (>60); EGFR Non-African American 31.6 (>60)
[2019-07-01] MEDS: Insulin LISPRO* 1 UNITS UNIT SUBCUT SCH ×4 (07:30→21:25)
[2019-07-01 07:43] LABS: TSH (Thyroid Stimulating Horm) 3.22 mcIU/mL (0.34-5.60)
[2019-07-01] MEDS: Venlafaxine EXT RELEASE CAP* 75 MG PO SCH (07:52)
[2019-07-01] MEDS: CMCS:Meloxicam(NF) 7.5 MG TAB PO SCH (07:53)
[2019-07-01] MEDS: Topiramate TAB(*) 25 MG PO SCH ×2 (07:53→21:29)
[2019-07-01] MEDS: Insulin GLARGINE(*) 1 UNITS UNIT SUBCUT SCH (07:54)
[2019-07-01 08:01] LABS: ABS Eosinophils 0.3 10^3/ul (0-0.6); ABS Lymphocytes 1.3 10^3/ul (1.0-4.8); ABS Monocytes 0.5 10^3/ul (0-0.8); ABS Neutrophils 10.6 10^3/ul (1.5-7.7); ABS Nucleated RBC 0.1 10^3/ul; Eosinophil % 2.2 %; Lymphocyte % 10.1 %; Nucleated Red Blood Cells % 0.6
[2019-07-01] MEDS ORDERED: Calcium Carbonate CHEW TAB* 500 MG (TUMS) PO PRN (08:38)
[2019-07-01] MEDS: Pantoprazole TAB * 40 MG TAB PO SCH (08:57)
[2019-07-01] MEDS: KCL 10 MEQ/50 ML IVPREMIX* 10 MEQ/50 ML BAG IV SCH ×3 (09:07→12:54)
[2019-07-01] MEDS: Sucralfate TAB* 1 GM PO SCH ×2 (12:54→16:41)
[2019-07-01] MEDS: cefTRIAXone(*) 1 GM in NS 0.9% 50 ML* 50 ML IVPB SCH (14:50)
--- NOTE | 2019-07-01 17:46 | PN ---
Subjective Date of Service: 07/01/19 Interval History: HOSPITALIST PROGRESS NOTE Patient seen and examined at bedside. Case reviewed and d/w Ana María Ndiaye RN. She feels better today. Pain is better controlled, able to move more. Denies dizziness, lightheadedness, dyspnea, CP. Family History: Unchanged from Admission Social History: Unchanged from Admission Past Medical History: Unchanged from Admission Objective Active Medications: Hydrocodone Bitart/Acetaminophen ([place] 5-325 Tab*) 1 tab PO Q3H PRN PRN Reason: PAIN - MODERATE Last Admin: 07/01/19 16:43 Dose: 1 tab Calcium Carbonate (Tums*) 500 mg PO Q4H PRN PRN Reason: HEARTBURN Last Admin: 07/01/19 09:07 Dose: 500 mg Dextrose (Dextrose 50% Vial 50 Ml*) 25 ml IV PUSH .FOR FS < 60 - SS PRN PRN Reason: FS < 60 Famotidine (Pepcid Tab*) 20 mg PO BEDTIME [facility] Heparin Sodium (Porcine) (Heparin Vial(*)) 5,000 units SUBCUT Q8HR [facility] Last Admin: 07/01/19 14:50 Dose: 5,000 units Sodium Chloride (Ns 0.9% 1000 Ml) 1,000 mls @ 100 mls/hr IV PER RATE [facility] Last Admin: 07/01/19 12:58 Dose: 100 mls/hr Ceftriaxone Sodium 1 gm/ (Sodium Chloride) 50 mls @ 100 mls/hr IVPB Q24H [facility] Last Admin: 07/01/19 14:50 Dose: 100 mls/hr Insulin Glargine (Lantus(*)) 38 units SUBCUT Q24HR [facility] Last Admin: 07/01/19 07:54 Dose: 38 unit Insulin Human Lispro (Humalog*) 0 units SUBCUT ACHS [facility]; Protocol Last Admin: 07/01/19 16:38 Dose: Not Given Levothyroxine Sodium (Synthroid Tab*) 50 mcg PO 0600 [facility] Last Admin: 07/01/19 05:41 Dose: 50 mcg Meloxicam (Mobic(Nf)) 15 mg PO DAILY [facility] Last Admin: 07/01/19 07:53 Dose: 15 mg Pantoprazole Sodium (Protonix Tab*) 40 mg PO DAILY [facility] Last Admin: 07/01/19 08:57 Dose: 40 mg Sucralfate (Carafate*) 1 gm PO 0700,1100,1600 [facility] Last Admin: 07/01/19 16:41 Dose: 1 gm Topiramate (Topamax(*)) 50 mg PO BID [facility] Last Admin: 07/01/19 07:53 Dose: 50 mg Venlafaxine HCl (Effexor Xr Cap*) 300 mg PO DAILY [facility] Last Admin: 07/01/19 07:52 Dose: 300 mg Vital Signs - 8 hr 07/01/19 07/01/19 07/01/19 11:35 12:54 14:57 Temperature 98.1 F Pulse Rate 80 Respiratory 16 16 16 Rate Blood Pressure 143/76 (mmHg) O2 Sat by Pulse 98 Oximetry 07/01/19 07/01/19 07/01/19 15:57 16:00 16:43 Temperature 97.6 F Pulse Rate 73 Respiratory 18 15 Rate Blood Pressure 133/67 (mmHg) O2 Sat by Pulse 99 99 Oximetry 07/01/19 17:27 Temperature Pulse Rate Respiratory 16 Rate Blood Pressure (mmHg) O2 Sat by Pulse Oximetry Oxygen Devices in Use Now: Nasal Cannula - 2 liters Appearance: Pleasant middle aged lady sitting up in bed in NAD Eyes: No Scleral Icterus Ears/Nose/Mouth/Throat: Mucous Membranes Moist Neck: Trachea Midline Respiratory: Symmetrical Chest Expansion and Respiratory Effort, Clear to Auscultation Cardiovascular: RRR - Normal S1 and S2 Abdominal: NL Sounds; No Tenderness; No Distention - mild left CVA tenderness Neurological: Alert and Oriented x 3, NL Muscle Strength and Tone Result Diagrams: 07/01/19 07:03 07/01/19 07:03 Assess/Plan/Problems-Billing Assessment: Mrs Mccray is a 48yo F with PMH of type 2 DM, HTN, hypothyroidism, migraines, anxiety, who presented to ED with c/o N/V, found to have uncontrolled DM and nephrolithiasis with associated hydronephrosis and pyelonephritis, s/o left ureteral stent. - Patient Problems (1) Severe sepsis Comment: - Present on admission with leukocytosis, fever, tachycardia, and lactic acidosis. - Source is pyelonephritis. - Severe sepsis is resolved. (2) Pyelonephritis Comment: - With Left ureteral stone/hydronephrosis s/p stent insertion 06/28. - Urine culture grew pansensitivie E. coli - continue Ceftriaxone. (3) Diabetes Comment: - A1c is 13.6 - will refer to Endocrinology. - Controlled in the hospital - continue Lantus 38 units/day with Lispro SS. (4) Hypothyroid Comment: - TSH 3.2. - Continue Levothyroxine. (5) Hypokalemia Comment: - Replete potassium. (6) Mood disorder Comment: - Continue Venlafaxine. (7) Tobacco abuse Comment: - Patient advised to quit smoking and avoid second hand smoke. Pt declined NRT 06/28. (8) DVT prophylaxis Comment: - SQ heparin. (9) Physical deconditioning Comment: - PT/OT consults appreciated. (10) Full code status Status and Disposition: Inpatient. Anticipate d/c in AM if she continues to improve.
[2019-07-01] MEDS ORDERED: Famotidine TAB* 20 MG PO SCH (21:00)
[2019-07-02] MEDS: NS 0.9% 1000 ML** 1,000 ML IV SCH (02:30)
[2019-07-02] MEDS: Heparin VIAL(*) 5000 UNITS/ML VIAL (FIVE THOUSAND) SUBCUT SCH (05:45)
[2019-07-02] MEDS: Levothyroxine TAB* 50 MCG TAB PO SCH (06:41)
[2019-07-02 07:21] LABS: BUN/Creatinine Ratio 18.9 (8-20); EGFR African American 41.6 (>60); EGFR Non-African American 34.4 (>60); Potassium 3.6 mmol/L (3.5-5.0)
[2019-07-02] MEDS: Insulin LISPRO* 1 UNITS UNIT SUBCUT SCH (07:33)
[2019-07-02] MEDS: Sucralfate TAB* 1 GM PO SCH (07:48)
[2019-07-02 07:49] VITALS: BP 153/81
[2019-07-02] MEDS: Venlafaxine EXT RELEASE CAP* 75 MG PO SCH (09:28)
[2019-07-02] MEDS: Topiramate TAB(*) 25 MG PO SCH (09:29)
[2019-07-02] MEDS: Pantoprazole TAB * 40 MG TAB PO SCH (09:29)
[2019-07-02] MEDS: CMCS:Meloxicam(NF) 7.5 MG TAB PO SCH (09:29)
[2019-07-02] MEDS: Insulin GLARGINE(*) 1 UNITS UNIT SUBCUT SCH (09:30)
--- NOTE | 2019-07-03 03:17 | DS ---
CC: Alvin Mosher NP; Jovani Cast MD; Librado Ott MD * DISCHARGE SUMMARY: DATE OF ADMISSION: 06/28/19 DATE OF DISCHARGE: 07/02/19 PRIMARY CARE PROVIDER: Alvin Mosher NP CONSULTING UROLOGIST: Jovani Cast MD INTERMODAL TRUCK DRIVER: Librado Ott MD DISCHARGE DIAGNOSES: 1. Severe sepsis. 2. Escherichia coli pyelonephritis, present on admission, not Remy catheter related. 3. Left hydronephrosis with nephrolithiasis, status post stent insertion. 4. Post renal failure in the setting of hydronephrosis. SECONDARY DIAGNOSES: 1. Type 2 diabetes. 2. Hypertension. 3. Hypothyroidism. 4. Migraines. 5. Anxiety. 6. Tobacco abuse. MEDICATION LIST: 1. Basaglar 44 units subcutaneously daily. 2. Lyrica 75 mg p.o. b.i.d. 3. Topiramate 50 mg p.o. b.i.d. 4. Meloxicam 15 mg p.o. daily. 5. Propranolol 60 mg p.o. daily. 6. Hydrochlorothiazide 25 mg p.o. daily. 7. Venlafaxine ER 300 p.o. daily. 8. NovoLog sliding scale 10 units 3 times a day with meals plus 1 unit for each 50 above 150. 9. Levothyroxine 50 mcg p.o. daily. 10. Omeprazole 20 mg p.o. daily. New medications: 1. Hydrocodone 5/325 mg 1 tablet p.o. q.6 hours p.r.n. for pain MDD 4, dispensed 10 tablets, no refill. 2. Famotidine 20 mg p.o. at bedtime. 3. Cefuroxime 500 mg p.o. b.i.d. for 11 more days. HOSPITAL COURSE: Ms. Mccray is a 48-year-old female with a past medical history as stated above that presented to the emergency room on 06/28/19 with complaints of left-sided flank pain associated with uncontrolled diabetes. Her workup in the emergency room included a CT of the abdomen and pelvis that showed hydronephrosis with a 5 mm calculus in the mid left ureter near the pelvic brim with an edematous left kidney with extensive stranding of the regional fat planes. Constellation of findings raise suspicion for superimposed pyelonephritis. The patient was admitted and was taken to the OR by Dr. Cast, where he performed cystoscopy, left retrograde pyelogram, and left stent insertion. Urine culture grew polysensitive E. coli greater than 100,000 colonies. The patient was continued on antibiotics and she had improvement of her symptoms. Her white cell count decreased from 20,000 to 12,000 on discharge. She also had improvement of her renal function from creatinine 2.7 down to 1.5. She was felt to be medically stable for discharge to follow up with Dr. Cast as outpatient after she completes her antibiotic course. The patient's diabetes was uncontrolled in the setting of infection, but she acknowledges that she is noncompliant with diet or insulin. In the hospital, her glucose was well controlled on the lower dose of insulin that she takes at home and her A1c is 13.6. The patient received diabetes education and seems that she is now motivated to work on controlling her diabetes. She was referred to a CAP top case assembler and she states that she was referred to see Dr. Ott as outpatient and she was encouraged to keep this appointment. The patient has a CBC and a BMP ordered for 07/06/19. She will follow up her white cell count, her platelets. She had mild thrombocytopenia likely secondary to sepsis while in the hospital as well as her renal function. The patient had electrolyte imbalances while in the hospital and those were repeated. While in the hospital, the patient received tobacco cessation education but it seems that she is not ready to quit at this time. She was advised about the risks including, but not limited to stroke, heart attack, vascular disease, multiple type of cancers. The patient acknowledges the risks of smoking but states that she is not ready to quit at this time. She is medically stable to go home today and follow up with Alvin Mosher, Dr. Cast, and Dr. Ott as outpatient. PHYSICAL EXAMINATION: Vital Signs: Temperature 97.8, heart rate is 69, respiratory rate is 16, oxygen saturation is 99% on room air, blood pressure is 163/81. General: The patient is a pleasant, middle-aged lady, sitting up in the bed, in no acute distress. CVS: Normal S1, S2. Regular rate and rhythm. Chest: Breath sounds present bilaterally with no added sounds. Abdomen is obese , soft, nontender, and nondistended. There is minimal left CVA tenderness. Extremities: No edema. Neuro: She is alert and oriented x3. She is able to move all 4 extremities. DIET: Consistent carb diet. ACTIVITY: As tolerated. DISPOSITION: To home. STATUS WHILE IN THE HOSPITAL: Inpatient. CONDITION AT THE TIME OF DISCHARGE: Fair. Please keep in mind that this is the summarized version of the patient's hospital stay. If you need more information, please do not hesitate to call me at or please obtain medical records. TIME SPENT: Approximately 50 minutes was spent to complete this discharge. [id number]/[facility] #: [id number] [place]
== END 2019-07-02 10:20 | disposition home or self-care (01) | DRG 853 ==
LOC: ED 14:24 → OR 19:04 → ICU 20:00 → SSU 06-29 08:35
PROVIDERS: ADMIT Urology; ATTEND Internal Medicine
PROC: BT1FZZZ Fluoroscopy of Left Kidney, Ureter and Bladder (ICD-10-PCS; 2019-06-28)
PROC: 0T778DZ Dilation of Left Ureter with Intraluminal Device, Via Natural or Artificial Opening Endoscopic (ICD-10-PCS; principal; 2019-06-28 18:30)
DX: A41.51 Sepsis due to Escherichia coli [E. coli] (principal); R65.21 Severe sepsis with septic shock; N17.9 Acute kidney failure, unspecified; N13.6 Pyonephrosis; E03.9 Hypothyroidism, unspecified; I10 Essential (primary) hypertension; M19.042 Primary osteoarthritis, left hand; M19.041 Primary osteoarthritis, right hand; M47.9 Spondylosis, unspecified; G43.909 Migraine, unspecified, not intractable, without status migrainosus; F41.0 Panic disorder [episodic paroxysmal anxiety]; D69.6 Thrombocytopenia, unspecified; F50.9 Eating disorder, unspecified; F32.9 Major depressive disorder, single episode, unspecified; F17.210 Nicotine dependence, cigarettes, uncomplicated; K21.9 Gastro-esophageal reflux disease without esophagitis; E83.42 Hypomagnesemia; E11.9 Type 2 diabetes mellitus without complications; E87.6 Hypokalemia; Z68.29 Body mass index [BMI] 29.0-29.9, adult; Z87.890 Personal history of sex reassignment; Z91.14 Patient's other noncompliance with medication regimen; Z79.4 Long term (current) use of insulin; Z79.890 Hormone replacement therapy
CPT/HCPCS: 36415; 70450; 71045; 74176; 74420; 80048; 80053; 83036; 83605; 83690; 83735; 83880; 84443; 85025; 85027; 86140; 87070; 87073; 87077; 87086; 87186; 87205; 87641; 90686; 93005; 99285; A9270-GY; C1876; J0696; J1644; J1956; J2250; J2543; J2704; J3010; J3475; J3480

== ENCOUNTER 2019-08-07 06:45 | Day surgery (SDC) | payer MEDICARE ==
--- NOTE | 2019-07-29 10:16 | HP ---
CC: Alvin Mosher; Dr. Cast * ADMITTING HISTORY AND PHYSICAL: DATE OF ADMISSION: 08/07/19 ADMISSION DIAGNOSES: 1. Calculus, left ureter. 2. Recent urinary tract infection and urosepsis secondary to obstructing calculus. PLANNED PROCEDURE: Left ureteroscopy, possible laser and stent replacement. SURGEON: Dr. Cast. HISTORY OF PRESENT ILLNESS: Pearl Mccray is a 48-year-old diabetic ( poorly controlled), who had undergone urgent left stent insertion on 06/28/19 for a 5-mm obstructing calculus in the left mid to distal ureter along with associated urosepsis. She did well postoperatively and is now being brought in for definitive treatment of the calculus. PAST MEDICAL HISTORY: Significant for, 1. Type 2 diabetes mellitus. 2. Hypothyroidism. 3. Hypertension. 4. Anxiety. 5. Migraines. 6. Chronic smoking history. PAST SURGICAL HISTORY: Significant for, 1. Recent left stent insertion on 06/28/19. 2. Cholecystectomy. 3. Splenectomy and partial removal of pancreas. 4. Tubal ligation. MEDICATIONS ON ADMISSION: 1. Lyrica 75 mg twice a day. 2. Topamax 50 mg twice a day (this is a risk factor for stone formation). 3. Meloxicam 15 mg daily. 4. Propranolol 60 mg daily. 5. Basaglar 44 units subcutaneous daily. 6. Hydrochlorothiazide 25 mg daily. 7. NovoLog sliding scale 3 times a day. 8. Levothyroxine 50 mcg daily. 9. Omeprazole 20 mg daily. 10. Venlafaxine 300 mg daily. ALLERGIES: No known drug allergies. SOCIAL HISTORY: Smoking History: She is a chronic smoker with approximately 20 to 25 pack-year smoking history. FAMILY HISTORY: Negative for stones. REVIEW OF SYSTEMS: She denies any chest pain or shortness of breath. PHYSICAL EXAMINATION GENERAL: Reveals a pleasant, healthy-appearing middle-aged lady. VITAL SIGNS: Blood pressure is 150/92, pulse 74 per minute regular, temperature 97.4, oxygen saturation 98% on room air. CARDIOVASCULAR EXAM: Regular rate and rhythm. S1, S2. LUNGS: Clear bilaterally. ABDOMEN: Soft with mild left flank tenderness. IMPRESSION: A 48-year-old diabetic who had undergone urgent left stent insertion for an obstructing calculus, left ureter, associated with urosepsis. PLAN: Plan now is for left ureteroscopy, possible laser and stent replacement. [id number]/[facility] #: [id number] [place]
[~2019-08-07 06:45] MED LIST: Buffered Lidocaine 1% SYRIN* 1 ML/SYRINGE INTRADERM ONE; Famotidine IV* 10 MG/ML 2 ML (20 mg) IV ONE; Gentamicin ADULT (*) 140 MG in NS 0.9% 100 ML* 100 ML IVPB ONE; Gentamicin ADULT (*) 140 MG in NS 0.9% 100 ML* 100 ML IVPB SCH; Lactated Ringers 1000 ML Bag* 1,000 ML IV SCH
[2019-08-07] MEDS ORDERED: cefTRIAXone(*) 2 GM ADDV.VIAL IVPB ONE (07:08)
[2019-08-07] MEDS ORDERED: Famotidine IV* 10 MG/ML 2 ML (20 mg) ONE (07:08)
[2019-08-07] MEDS ORDERED: Iohexol 180 (CONTRAST) 10 ML SDV IV ONE (07:57)
[2019-08-07] MEDS ORDERED: Naloxone* 0.4 MG/ML 1 ML VIAL IV PRN (08:14)
[2019-08-07] MEDS ORDERED: DiMENhydriNATE IV* 50 MG/ML VIAL IV PUSH PRN (08:14)
[2019-08-07] MEDS ORDERED: oxyCODONE TAB* 5 MG TAB PO PRN (08:14)
[2019-08-07] MEDS ORDERED: Acetaminophen TAB* 325 MG PO PRN (08:14)
[2019-08-07] MEDS ORDERED: Midazolam* 1 MG/ML 5 ML VIAL (5 MG) ONE (08:34)
[2019-08-07] MEDS ORDERED: fentaNYL* 50 MCG/ML 2 ML VIAL (100 MCG VIAL) ONE (08:48)
[2019-08-07] MEDS ORDERED: Ketorolac INJ* 30 MG/ML 1 ML VIAL ONE (09:06)
[2019-08-07] MEDS ORDERED: Ondansetron INJ* 2 MG/ML VIAL ONE (09:06)
[2019-08-07] MEDS ORDERED: DiMENhydriNATE IV* 50 MG/ML VIAL ONE (09:06)
[2019-08-07] MEDS ORDERED: Dexamethasone IV* 4 MG/ML 1 ML (4 MG) ONE (09:06)
[2019-08-07] MEDS ORDERED: Propofol* 10 MG/ML 20 ML BTL ONE (09:06)
[2019-08-07] MEDS ORDERED: Lidocaine 2% PF * 5 ML VIAL ONE (09:06)
[2019-08-07 10:21] VITALS: BP 137/94
--- NOTE | 2019-08-07 23:48 | OP ---
CC: Alvin Mosher NP * DATE OF OPERATION: 08/07/19 - [facility] DATE OF : 66 SURGEON: Jovani Cast MD ANESTHESIOLOGIST: Dr. Diamond. ANESTHESIA: General. PRE-OP DIAGNOSES: 1. Left hydronephrosis. 2. History of calculus, left ureter. POST-OP DIAGNOSES: 1. Left hydronephrosis. 2. History of calculus, left ureter. OPERATIVE PROCEDURE: Cystoscopy, left stent removal, left retrograde pyelogram , left ureteroscopy and stone extraction, and left stent insertion. COMPLICATIONS: None. STENT USED: 7-Ethiopian stent, left ureter POSTOPERATIVE CONDITION: Stable. INDICATIONS: Pearl Mccray is a 48-year-old lady who had undergone urgent left stent insertion for an obstructing calculus along with urinary infection. OPERATIVE FINDINGS: Fairly small (3 to 4 mm) soft calculus, left mid ureter, with mild left hydronephrosis. DESCRIPTION OF PROCEDURE: After induction of general anesthesia, the patient was placed in dorsal lithotomy position. Sequential compression devices were in place and functioning. Initial cystoscopy revealed the previously placed left stent in appropriate position with some surrounding inflammatory response as expected. The stent was removed. A 6-Ethiopian semi-rigid ureteroscope was introduced and advanced under direct vision. The entire distal, mid, and proximal ureters were visualized to the level of the ureteropelvic junction. In the midureter, there was a fairly small, soft (cotton ball) appearing calculus which was engaged using a 3- pronged grasper and removed. There was no evidence of any typical hard calculus as one would expect with urolithiasis. After satisfactorily examined the entire ureter, the ureteroscope was carefully withdrawn after a retrograde pyelogram confirming adequate positioning of the guidewire. A 7-Ethiopian stent was introduced and positioned under fluoroscopy with good proximal and distal positioning obtained. My plan is to obtain a postoperative x-ray to make sure that the calculus did not migrate into the kidney, and if x-ray is okay, the plan then would be to proceed with the stent removal next week. The patient tolerated the procedure satisfactorily and was transferred back to the recovery area in stable condition. [id number] #: [id number] [facility]
== END 2019-08-07 10:25 | disposition home or self-care (01) ==
LOC: OR 06:45
PROVIDERS: ATTEND Urology
DX: N13.2 Hydronephrosis with renal and ureteral calculous obstruction (principal); E11.9 Type 2 diabetes mellitus without complications; Z79.4 Long term (current) use of insulin; E03.9 Hypothyroidism, unspecified; I10 Essential (primary) hypertension; F41.9 Anxiety disorder, unspecified; F17.210 Nicotine dependence, cigarettes, uncomplicated
CPT/HCPCS: 74018; 74420; C1876; J0696; J1100; J1240; J1580; J1885; J2250; J2405; J2704; J3010

== ENCOUNTER 2020-07-12 23:22 | Inpatient (IN) ==
[2020-07-12] MEDS ORDERED: NS 0.9% 1000 ml BAG 1,000 ML IV ONE (23:53)
[2020-07-13 00:06] LABS: ABS Basophils 0.1 10^3/ul (0-0.2); ABS Eosinophils 0.2 10^3/ul (0-0.6); ABS Lymphocytes 3.9 10^3/ul (1.0-4.8); ABS Monocytes 0.7 10^3/ul (0-0.8); ABS Neutrophils 7.5 10^3/ul (1.5-7.7); Eosinophil % 1.4 %; Hematocrit 41 % (35-47); Lymphocyte % 31.3 %; Mean Corpuscular HGB Conc 35 g/dL (31-36); Mean Corpuscular Hemoglobin 32 pg (27-31); Mean Corpuscular Volume 92 fL (80-97); Mean Platelet Volume 9.8 fL (7.4-10.4); Platelet Count 343 10^3/uL (150-450); Red Blood Count 4.43 10^6 /uL (3.70-4.87); Red Cell Distribution Width 13 % (10-15); White Blood Count 12.4 10^3/uL (3.5-10.8)
[2020-07-13 00:24] LABS: ALT 19 U/L (7-52); AST 16 U/L (13-39); Albumin 4.2 g/dL (3.2-5.2); Albumin/Globulin Ratio 1.2 (1-3); Alkaline Phosphatase 121 U/L (34-104); Anion Gap 12 mmol/L (2-11); BUN/Creatinine Ratio 24.7 (8-20); Blood Urea Nitrogen 55 mg/dL (6-24); C Reactive Protein 9.28 mg/L (<8.01); CO2 Carbon Dioxide 29 mmol/L (22-32); Calcium 9.4 mg/dL (8.6-10.3); Chloride 84 mmol/L (101-111); EGFR Non-African American 23.2 (>60); Globulin 3.6 g/dL (2-4); Lipase 52 U/L (11.0-82.0); Magnesium 1.7 mg/dL (1.9-2.7); Potassium 3.7 mmol/L (3.5-5.0); Sodium 125 mmol/L (135-145); Total Protein 7.8 g/dL (6.4-8.9)
[2020-07-13 00:43] LABS: Glucose 783 mg/dL (70-100)
[2020-07-13] MEDS ORDERED: Magnesium Sulfate 2 gm BAG 2 GM/50 ML BAG IVPB ONE (00:43)
[2020-07-13] MEDS ORDERED: NS 0.9% 1000 ml BAG 1,000 ML IV ONE (00:45)
[2020-07-13 00:56] LABS: Alcohol, S < 10 mg/dL (<10)
[2020-07-13 01:11] LABS: TSH Ultra Thyroid Stim Horm 2.09 mcIU/mL (0.34-5.60)
[2020-07-13 01:13] LABS: Free T4 1.02 ng/dL (0.61-1.12)
[2020-07-13] MEDS ORDERED: NS 0.9% 1000 ml BAG 2,000 ML IV ONE (01:43)
[2020-07-13] MEDS ORDERED: Insulin Infusion 100unit/100mL 100 UNIT/100 ML BAG IV SCH (02:00)
[2020-07-13 03:37] LABS: Urine Appearance Cloudy; Urine Bilirubin Negative (Negative); Urine Blood Negative (Negative); Urine Color Straw; Urine Glucose 3+(>=500 mg/dL) (Negative); Urine Ketones Negative (Negative); Urine Nitrite Negative (Negative); Urine Protein 1+(30 mg/dL) (Negative); Urine Specific Gravity 1.021 (1.010-1.030); Urine Urobilinogen Negative (Negative)
[2020-07-13 03:39] LABS: Urine Bacteria Absent (Absent); Urine Red Blood Cell Trace(0-2/hpf) (Absent); Urine Squamous Epithelial Cell Present (Absent); Urine White Blood Cell Trace(0-5/hpf) (Absent)
[2020-07-13 03:44] LABS: Urine Creatinine Concentration 29.24 mg/dL
[2020-07-13 04:17] LABS: BUN/Creatinine Ratio 29.6 (8-20); Calcium 7.6 mg/dL (8.6-10.3); EGFR African American 40.5 (>60); EGFR Non-African American 33.5 (>60)
[2020-07-13] MEDS: D5W 1/2 NS KCl 20 meq 1000 ml 1,000 ML IV SCH ×2 (05:02→05:04)
[2020-07-13 05:03] LABS: Magnesium 1.7 mg/dL (1.9-2.7)
[2020-07-13] MEDS ORDERED: Magnesium Sulfate IV 3 GM in NS 0.9% 100 ml BAG 100 ML IVPB ONE (05:43)
[2020-07-13] MEDS ORDERED: Dextrose 50% Syringe 50 ml 25 GM/50 ML SYRINGE IV PUSH PRN (05:46)
[2020-07-13] MEDS ORDERED: NS 0.9% 1000 ml BAG 1,000 ML IV SCH (06:00)
[2020-07-13] MEDS ORDERED: Lactated Ringers 1000 ml BAG 1,000 ML IV SCH (08:00)
[2020-07-13] MEDS: KCL 20 MEQ/100 ML IVPREMIX 20 MEQ/100 ML BAG IV SCH (08:33)
[2020-07-13] MEDS ORDERED: Insulin GLARGINE 100 un/ml 10 ml VIAL SUBCUT SCH ×2 (09:00→11:00)
[2020-07-13] MEDS ORDERED: Insulin GLARGINE 100 un/ml 10 ml VIAL SUBCUT ONE (10:25)
[2020-07-13] MEDS: Venlafaxine XR 75 mg PO SCH (10:39)
[2020-07-13] MEDS: Potassium Chlor 20 meq TAB.ER PO SCH ×2 (10:40→14:43)
[2020-07-13] MEDS: Enoxaparin 40 MG/0.4 ML SYR SUBCUT SCH (11:48)
[2020-07-13] MEDS ORDERED: Nicotine PATCH 21 MG/24 HR PATCH ONE (14:52)
[2020-07-13] MEDS: Nicotine PATCH 21 MG/24 HR PATCH TRANSDERM SCH (14:54)
[2020-07-13 15:55] LABS: Urine Benzodiazepine Screen None Detected (None Detect); Urine Cannabinoids Screen None Detected (None Detect); Urine Opiates Screen None Detected (None Detect)
[2020-07-13 16:14] LABS: BUN/Creatinine Ratio 25.5 (8-20); Calcium 8.4 mg/dL (8.6-10.3); EGFR African American 47.6 (>60); EGFR Non-African American 39.3 (>60); Potassium 3.6 mmol/L (3.5-5.0)
[2020-07-13 21:59] LABS: Urine Buprenorphine Screen None Detected (None Detect); Urine Fentanyl Screen None Detected (None Detect); Urine Hydrocodone Screen None Detected (None Detect)
[2020-07-14 06:06] LABS: Hematocrit 36 % (35-47); Hemoglobin 12.2 g/dL (12.0-16.0); Mean Corpuscular HGB Conc 34 g/dL (31-36); Mean Corpuscular Hemoglobin 31 pg (27-31); Mean Corpuscular Volume 92 fL (80-97); Mean Platelet Volume 9.7 fL (7.4-10.4); Platelet Count 292 10^3/uL (150-450); Red Blood Count 3.88 10^6 /uL (3.70-4.87); Red Cell Distribution Width 13 % (10-15); White Blood Count 13.8 10^3/uL (3.5-10.8)
[2020-07-14 06:24] LABS: BUN/Creatinine Ratio 22.7 (8-20); Calcium 8.4 mg/dL (8.6-10.3); EGFR African American 51.3 (>60); EGFR Non-African American 42.4 (>60); Potassium 3.6 mmol/L (3.5-5.0)
[2020-07-14] MEDS ORDERED: Potassium Chlor 20 meq TAB.ER PO ONE (08:00)
[2020-07-14] MEDS ORDERED: Insulin GLARGINE 100 un/ml 10 ml VIAL SUBCUT SCH ×2 (09:00)
[2020-07-14] MEDS: Nicotine PATCH 21 MG/24 HR PATCH TRANSDERM SCH (09:53)
[2020-07-14] MEDS: Venlafaxine XR 75 mg PO SCH (09:54)
[2020-07-14] MEDS: Enoxaparin 40 MG/0.4 ML SYR SUBCUT SCH (09:55)
[2020-07-14 14:53] VITALS: BP 155/96
== END 2020-07-14 15:00 | disposition home or self-care (01) | DRG 638 ==
LOC: ED 23:22 → ICU 07-13 01:45
PROVIDERS: ADMIT Internal Medicine; ATTEND Internal Medicine

== ENCOUNTER 2020-09-06 13:50 | Inpatient (IN) ==
[2020-09-06] MEDS ORDERED: NS 0.9% 1000 ml BAG 1,000 ML IV ONE ×2 (14:31→15:34)
[2020-09-06] MEDS ORDERED: Morphine 4 MG/ML VIAL (1 ml) IV ONE ×2 (14:31→16:05)
[2020-09-06] MEDS ORDERED: Ondansetron 4 mg VIAL 2 MG/ML 2 ml VIAL IV ONE (14:31)
[2020-09-06 15:26] LABS: Hematocrit 38 % (35-47); Mean Corpuscular HGB Conc 34 g/dL (31-36); Mean Corpuscular Hemoglobin 31 pg (27-31); Mean Corpuscular Volume 91 fL (80-97); Mean Platelet Volume 9.6 fL (7.4-10.4); Platelet Count 325 10^3/uL (150-450); Red Blood Count 4.17 10^6 /uL (3.70-4.87); Red Cell Distribution Width 13 % (10-15); White Blood Count 24.1 10^3/uL (3.5-10.8)
[2020-09-06] MEDS ORDERED: cefTRIAXone 1 gm/50 mL NS BAG 1 GM/50 ML BAG IV ONE (15:30)
[2020-09-06 15:31] LABS: ALT 12 U/L (7-52); AST 15 U/L (13-39); Albumin 3.7 g/dL (3.2-5.2); Albumin/Globulin Ratio 1.1 (1-3); Alkaline Phosphatase 86 U/L (34-104); Anion Gap 12 mmol/L (2-11); BUN/Creatinine Ratio 19.4 (8-20); Blood Urea Nitrogen 34 mg/dL (6-24); C Reactive Protein 152.88 mg/L (<8.01); CO2 Carbon Dioxide 25 mmol/L (22-32); Calcium 9.3 mg/dL (8.6-10.3); Chloride 95 mmol/L (101-111); EGFR African American 36.9 (>60); EGFR Non-African American 30.5 (>60); Globulin 3.4 g/dL (2-4); Glucose 375 mg/dL (70-100); Potassium 2.9 mmol/L (3.5-5.0); Sodium 132 mmol/L (135-145); Total Protein 7.1 g/dL (6.4-8.9)
[2020-09-06 15:38] LABS: Troponin I 0.05 ng/mL (<0.03)
[2020-09-06 15:39] LABS: Influenza A Molecular Negative (Negative); Influenza B Molecular Negative (Negative)
[2020-09-06 16:02] LABS: Urine Appearance Turbid; Urine Bilirubin Negative (Negative); Urine Blood 3+ (Negative); Urine Color Amber; Urine Glucose 3+(>=500 mg/dL) (Negative); Urine Ketones Trace (Negative); Urine Nitrite Negative (Negative); Urine Protein 3+(>=500 mg/dL) (Negative); Urine Specific Gravity 1.023 (1.010-1.030); Urine Urobilinogen Negative (Negative)
[2020-09-06] MEDS ORDERED: KCL 20 MEQ/100 ML IVPREMIX 20 MEQ/100 ML BAG IV ONE (16:02)
[2020-09-06 16:07] LABS: Urine Bacteria 1+ (Absent); Urine Red Blood Cell 3+(>10/hpf) (Absent); Urine Squamous Epithelial Cell Present (Absent); Urine White Blood Cell 3+(>20/hpf) (Absent)
[2020-09-06 16:30] LABS: ABS Basophils 0.2 10^3/ul (0-0.2); ABS Lymphocytes 1.2 10^3/ul (1.0-4.8); ABS Monocytes 2.1 10^3/ul (0-0.8); ABS Neutrophils 20.6 10^3/ul (1.5-7.7); Lymphocyte % 4.9 %
[2020-09-06] MEDS ORDERED: Dextrose 50% Syringe 50 ml 25 GM/50 ML SYRINGE IV PUSH PRN (17:23)
[2020-09-06] MEDS ORDERED: Ondansetron 4 mg VIAL 2 MG/ML 2 ml VIAL IV PRN (17:25)
[2020-09-06] MEDS ORDERED: NS 0.9% w/ 40 Meq KCL 1000 ML 1,000 ML IV SCH (18:00)
[2020-09-06] MEDS: Enoxaparin 40 MG/0.4 ML SYR SUBCUT SCH (18:46)
[2020-09-06 19:34] LABS: Troponin I 0.05 ng/mL (<0.03)
[2020-09-06] MEDS: Morphine 2 MG/ML SYRINGE IV PRN (21:22)
[2020-09-06] MEDS ORDERED: hydrALAZINE 20 mg/ml 1 ML Vial IV IV SLOW PU ONE (22:44)
[2020-09-07] MEDS: Morphine 2 MG/ML SYRINGE IV PRN ×4 (01:31→21:18)
[2020-09-07 05:14] LABS: Troponin I 0.04 ng/mL (<0.03)
[2020-09-07] MEDS: Nicotine PATCH 21 MG/24 HR PATCH TRANSDERM SCH (08:50)
[2020-09-07] MEDS: Venlafaxine XR 75 mg PO SCH (08:51)
[2020-09-07] MEDS: Cholecalciferol (VIT D3) 1,000 unit TAB PO SCH (08:51)
[2020-09-07] MEDS: Insulin GLARGINE 100 un/ml 10 ml VIAL SUBCUT SCH (08:56)
[2020-09-07 09:17] LABS: ABS Basophils 0.1 10^3/ul (0-0.2); ABS Eosinophils 0.1 10^3/ul (0-0.6); ABS Lymphocytes 1.7 10^3/ul (1.0-4.8); ABS Monocytes 0.9 10^3/ul (0-0.8); ABS Neutrophils 12.3 10^3/ul (1.5-7.7); Eosinophil % 0.4 %; Hematocrit 34 % (35-47); Hemoglobin 11.7 g/dL (12.0-16.0); Lymphocyte % 11.6 %; Mean Corpuscular HGB Conc 35 g/dL (31-36); Mean Corpuscular Hemoglobin 32 pg (27-31); Mean Corpuscular Volume 91 fL (80-97); Mean Platelet Volume 9.3 fL (7.4-10.4); Platelet Count 272 10^3/uL (150-450); Red Blood Count 3.69 10^6 /uL (3.70-4.87); Red Cell Distribution Width 13 % (10-15); White Blood Count 15.1 10^3/uL (3.5-10.8)
[2020-09-07 09:37] LABS: BUN/Creatinine Ratio 18.1 (8-20); Calcium 8.4 mg/dL (8.6-10.3); EGFR African American 31.8 (>60); EGFR Non-African American 26.3 (>60); Potassium 3.6 mmol/L (3.5-5.0)
[2020-09-07] MEDS ORDERED: NS 0.9% 1000 ml BAG 1,000 ML IV SCH (11:30)
[2020-09-07] MEDS: cefTRIAXone 1 gm/50 mL NS BAG 1 GM/50 ML BAG IVPB SCH (16:26)
[2020-09-07] MEDS: Enoxaparin 40 MG/0.4 ML SYR SUBCUT SCH (17:30)
[2020-09-08 06:57] LABS: ABS Basophils 0.1 10^3/ul (0-0.2); ABS Eosinophils 0.1 10^3/ul (0-0.6); ABS Lymphocytes 1.9 10^3/ul (1.0-4.8); ABS Monocytes 1.1 10^3/ul (0-0.8); ABS Neutrophils 9.8 10^3/ul (1.5-7.7); Eosinophil % 0.4 %; Hematocrit 33 % (35-47); Hemoglobin 11.1 g/dL (12.0-16.0); Lymphocyte % 14.7 %; Mean Corpuscular HGB Conc 34 g/dL (31-36); Mean Corpuscular Hemoglobin 31 pg (27-31); Mean Corpuscular Volume 92 fL (80-97); Mean Platelet Volume 9.6 fL (7.4-10.4); Platelet Count 258 10^3/uL (150-450); Red Blood Count 3.55 10^6 /uL (3.70-4.87); Red Cell Distribution Width 13 % (10-15)
[2020-09-08 07:13] LABS: BUN/Creatinine Ratio 18.3 (8-20); C Reactive Protein 148.28 mg/L (<8.01); Calcium 7.9 mg/dL (8.6-10.3); EGFR African American 31.3 (>60); EGFR Non-African American 25.9 (>60); Potassium 3.1 mmol/L (3.5-5.0)
[2020-09-08] MEDS: Insulin GLARGINE 100 un/ml 10 ml VIAL SUBCUT SCH (09:29)
[2020-09-08] MEDS: Venlafaxine XR 75 mg PO SCH (09:29)
[2020-09-08] MEDS: Nicotine PATCH 21 MG/24 HR PATCH TRANSDERM SCH (09:32)
[2020-09-08] MEDS: Cholecalciferol (VIT D3) 1,000 unit TAB PO SCH (09:36)
[2020-09-08] MEDS: Enoxaparin 40 MG/0.4 ML SYR SUBCUT SCH (17:09)
[2020-09-08] MEDS: cefTRIAXone 1 gm/50 mL NS BAG 1 GM/50 ML BAG IVPB SCH (17:10)
[2020-09-08] MEDS ORDERED: cefTRIAXone 1 gm/50 mL NS BAG 1 GM/50 ML BAG IVPB SCH (17:39)
[2020-09-08] MEDS: KCL 20 MEQ/100 ML IVPREMIX 20 MEQ/100 ML BAG IV SCH (20:26)
[2020-09-09] MEDS: KCL 20 MEQ/100 ML IVPREMIX 20 MEQ/100 ML BAG IV SCH ×2 (01:04→03:46)
[2020-09-09] MEDS: Morphine 2 MG/ML SYRINGE IV PRN (03:45)
[2020-09-09 06:27] LABS: ABS Basophils 0.1 10^3/ul (0-0.2); ABS Eosinophils 0.1 10^3/ul (0-0.6); ABS Lymphocytes 2.4 10^3/ul (1.0-4.8); ABS Monocytes 1.5 10^3/ul (0-0.8); ABS Neutrophils 10.5 10^3/ul (1.5-7.7); Hematocrit 33 % (35-47); Hemoglobin 10.9 g/dL (12.0-16.0); Lymphocyte % 16.4 %; Mean Corpuscular HGB Conc 33 g/dL (31-36); Mean Corpuscular Hemoglobin 31 pg (27-31); Mean Corpuscular Volume 92 fL (80-97); Mean Platelet Volume 9.6 fL (7.4-10.4); Nucleated Red Blood Cells % 0.1; Platelet Count 279 10^3/uL (150-450); Red Blood Count 3.52 10^6 /uL (3.70-4.87); Red Cell Distribution Width 13 % (10-15); White Blood Count 14.6 10^3/uL (3.5-10.8)
[2020-09-09 06:48] LABS: BUN/Creatinine Ratio 19.4 (8-20); EGFR African American 35.8 (>60); EGFR Non-African American 29.5 (>60); Magnesium 1.3 mg/dL (1.9-2.7); Potassium 4.1 mmol/L (3.5-5.0)
[2020-09-09] MEDS: Venlafaxine XR 75 mg PO SCH (08:27)
[2020-09-09] MEDS: Cholecalciferol (VIT D3) 1,000 unit TAB PO SCH (08:27)
[2020-09-09] MEDS: Insulin GLARGINE 100 un/ml 10 ml VIAL SUBCUT SCH (08:28)
[2020-09-09] MEDS: Nicotine PATCH 21 MG/24 HR PATCH TRANSDERM SCH (08:28)
[2020-09-09] MEDS ORDERED: Magnesium Sulf 4 GM/100 ML IV 4,000 MG/100 ML BAG IVPB ONE (12:51)
[2020-09-09 15:19] VITALS: BP 159/88
[2020-09-09] MEDS ORDERED: cefTRIAXone 2 GM ADDV.VIAL 2 GM in NS 0.9% 100 ml BAG 100 ML IV SCH (18:00)
== END 2020-09-09 16:50 | disposition home or self-care (01) | DRG 872 ==
LOC: MEDTELE 13:50 → ED 13:50 → MEDTELE 09-07 16:32
PROVIDERS: ADMIT Internal Medicine; ATTEND Internal Medicine

== ENCOUNTER 2021-08-15 09:26 | Inpatient (IN) ==
[2021-08-15 10:43] LABS: ABS Basophils 0.1 10^3/ul (0-0.2); ABS Eosinophils 0.1 10^3/ul (0-0.6); ABS Lymphocytes 2.9 10^3/ul (1.0-4.8); ABS Monocytes 0.7 10^3/ul (0-0.8); ABS Neutrophils 8.8 10^3/ul (1.5-7.7); Hematocrit 42 % (35-47); Hemoglobin 13.9 g/dL (12.0-16.0); Lymphocyte % 22.9 %; Mean Corpuscular HGB Conc 34 g/dL (31-36); Mean Corpuscular Hemoglobin 30 pg (27-31); Mean Corpuscular Volume 91 fL (80-97); Mean Platelet Volume 9.5 fL (7.4-10.4); Platelet Count 357 10^3/uL (150-450); Red Blood Count 4.57 10^6 /uL (3.70-4.87); Red Cell Distribution Width 13 % (10-15); White Blood Count 12.7 10^3/uL (3.5-10.8)
[2021-08-15 10:58] LABS: Albumin/Globulin Ratio 1.1 (1-3); Calcium 9.8 mg/dL (8.6-10.3); Globulin 3.7 g/dL (2-4); Magnesium 1.7 mg/dL (1.9-2.7); Potassium 3.8 mmol/L (3.5-5.0); Total Bilirubin 0.4 mg/dL (0.2-1.0); Total Protein 7.7 g/dL (6.4-8.9)
[2021-08-15 11:12] LABS: TSH Ultra Thyroid Stim Horm 2.51 mcIU/mL (0.34-5.60)
[2021-08-15 14:41] LABS: Urine Benzodiazepine Screen None Detected (None Detect); Urine Cannabinoids Screen None Detected (None Detect); Urine Opiates Screen None Detected (None Detect)
[2021-08-15] MEDS ORDERED: Dextrose 50% Syringe 50 ml 25 GM/50 ML SYRINGE IV PUSH PRN (14:44)
[2021-08-15] MEDS ORDERED: Magnesium Sulfate 2 gm BAG 2 GM/50 ML BAG IVPB ONE (14:45)
[2021-08-15 14:46] LABS: Acetaminophen < 15 mcg/mL; Alcohol, S < 13 mg/dL (<13)
[2021-08-16 05:42] LABS: Hematocrit 39 % (35-47); Hemoglobin 13.1 g/dL (12.0-16.0); Mean Corpuscular HGB Conc 34 g/dL (31-36); Mean Corpuscular Hemoglobin 31 pg (27-31); Mean Corpuscular Volume 92 fL (80-97); Mean Platelet Volume 9.8 fL (7.4-10.4); Platelet Count 328 10^3/uL (150-450); Red Blood Count 4.21 10^6 /uL (3.70-4.87); Red Cell Distribution Width 14 % (10-15); White Blood Count 10.7 10^3/uL (3.5-10.8)
[2021-08-16 06:01] LABS: Calcium 9.3 mg/dL (8.6-10.3); HDL Cholesterol 35.6 mg/dL; Magnesium 2.1 mg/dL (1.9-2.7); Potassium 3.7 mmol/L (3.5-5.0); eGFR CKD-EPI 25.9 (>60)
[2021-08-16] MEDS ORDERED: Lactated Ringers 1000 ml BAG 1,000 ML IV SCH (07:00)
[2021-08-16] MEDS ORDERED: Insulin GLARGINE 100 un/ml 10 ml VIAL SUBCUT SCH ×2 (09:00)
[2021-08-16] MEDS ORDERED: Regadenoson 0.4 MG/5 ML SYRINGE ONE (10:39)
[2021-08-16] MEDS: Venlafaxine XR 75 mg PO SCH (14:57)
[2021-08-16] MEDS ORDERED: Lactated Ringers 1000 ml BAG 1,000 ML IV ONE (14:59)
[2021-08-17 06:17] LABS: Calcium 9.1 mg/dL (8.6-10.3); Potassium 3.8 mmol/L (3.5-5.0); eGFR CKD-EPI 27.2 (>60)
[2021-08-17] MEDS: Venlafaxine XR 75 mg PO SCH (10:44)
[2021-08-17 11:38] VITALS: BP 160/93
[2021-08-17] MEDS ORDERED: Insulin LISPRO* FOR INSULIN PUMP SUBCUT SCH (12:00)
[2021-08-17] MEDS ORDERED: Insulin GLARGINE 100 un/ml 10 ml VIAL SUBCUT SCH (20:00)
== END 2021-08-17 15:15 | disposition home or self-care (01) | DRG 313 ==
LOC: ED 09:26 → EDHOLD 15:30 → MEDTELE 17:30
PROVIDERS: ADMIT Internal Medicine; ATTEND Internal Medicine

== ENCOUNTER 2022-08-26 18:37 | Inpatient (IN) ==
[2022-08-26] MEDS ORDERED: Heparin - STEMI 5,000 UNITS/ML 1 ml VIAL IV ONE (18:39)
[2022-08-26 18:59] LABS: ABS Basophils 0.1 10^3/ul (0-0.2); ABS Eosinophils 0.1 10^3/ul (0-0.6); ABS Lymphocytes 2.5 10^3/ul (1.0-4.8); ABS Monocytes 0.8 10^3/ul (0-0.8); ABS Neutrophils 10.8 10^3/ul (1.5-7.7); Eosinophil % 0.7 %; Hematocrit 37 % (35-47); Hemoglobin 12.5 g/dL (12.0-16.0); Lymphocyte % 17.6 %; Mean Corpuscular HGB Conc 34 g/dL (31-36); Mean Corpuscular Hemoglobin 31 pg (27-31); Mean Corpuscular Volume 92 fL (80-97); Mean Platelet Volume 9.8 fL (7.4-10.4); Platelet Count 338 10^3/uL (150-450); Red Blood Count 4.07 10^6 /uL (3.70-4.87); Red Cell Distribution Width 13 % (10-15); White Blood Count 14.3 10^3/uL (3.5-10.8)
[2022-08-26 19:56] LABS: Albumin 3.5 g/dL (3.2-5.2); Magnesium 1.7 mg/dL (1.9-2.7)
[2022-08-26 20:02] LABS: Albumin/Globulin Ratio 1.3 (1-3); Globulin 2.6 g/dL (2-4); Total Protein 6.1 g/dL (6.4-8.9)
[2022-08-26 20:07] LABS: INR 0.89 (0.88-1.18)
[2022-08-26 20:10] LABS: Activated Partial Thrombo Time 138.6 seconds (26.0-38.0)
[2022-08-26 20:13] LABS: Calcium 9.6 mg/dL (8.6-10.3); Creatinine, Serum 1.87 mg/dL (0.51-0.95); Potassium 3.7 mmol/L (3.5-5.0); Total Bilirubin 0.3 mg/dL (0.2-1.0); eGFR CKD-EPI 31.6 (>60)
[2022-08-26] MEDS ORDERED: Ondansetron 4 mg VIAL 2 MG/ML 2 ml VIAL IV PRN (21:06)
[2022-08-26] MEDS ORDERED: fentaNYL 100 mcg/2 ml 50 MCG/ML VIAL ONE (21:40)
[2022-08-26] MEDS: fentaNYL 100 mcg/2 ml 50 MCG/ML VIAL IV PRN ×2 (21:45→23:45)
[2022-08-26] MEDS ORDERED: Metoprolol Tartrate 5 mg VIAL 5 ml VIAL (1 mg/ml) IV ONE (22:52)
[2022-08-26] MEDS ORDERED: Metoprolol Tartrate 5 mg VIAL 5 ml VIAL (1 mg/ml) ONE (22:53)
[2022-08-27] MEDS ORDERED: nitroGLYCERIN DRIP 25,000 MCG/250 ML BTL ONE (00:10)
[2022-08-27] MEDS ORDERED: nitroGLYCERIN DRIP 25,000 MCG/250 ML BTL IV SCH ×2 (01:00)
[2022-08-27] MEDS: fentaNYL 100 mcg/2 ml 50 MCG/ML VIAL IV PRN ×2 (02:45→05:14)
[2022-08-27 04:36] LABS: ABS Eosinophils 0.2 10^3/ul (0-0.6); ABS Monocytes 1.3 10^3/ul (0-0.8); Eosinophil % 1.5 %; Hematocrit 33 % (35-47); Hemoglobin 11.1 g/dL (12.0-16.0); Lymphocyte % 24.3 %; Mean Corpuscular HGB Conc 34 g/dL (31-36); Mean Corpuscular Hemoglobin 30 pg (27-31); Mean Corpuscular Volume 90 fL (80-97); Mean Platelet Volume 9.6 fL (7.4-10.4); Platelet Count 303 10^3/uL (150-450); Red Blood Count 3.66 10^6 /uL (3.70-4.87); Red Cell Distribution Width 13 % (10-15); White Blood Count 16.6 10^3/uL (3.5-10.8)
[2022-08-27 05:15] LABS: Albumin/Globulin Ratio 1.3 (1-3); Calcium 8.6 mg/dL (8.6-10.3); Creatinine, Serum 1.67 mg/dL (0.51-0.95); Globulin 2.3 g/dL (2-4); HDL Cholesterol 47.5 mg/dL; Potassium 3.2 mmol/L (3.5-5.0); Total Bilirubin 0.3 mg/dL (0.2-1.0); Total Protein 5.3 g/dL (6.4-8.9); eGFR CKD-EPI 36.2 (>60)
[2022-08-27] MEDS ORDERED: Potassium Chloride LIQUID 20 MEQ/15 ML LIQUID PO ONE (05:44)
[2022-08-27] MEDS: KCL 20 MEQ/100 ML IVPREMIX 20 MEQ/100 ML BAG IV SCH ×2 (06:16→10:38)
[2022-08-27] MEDS ORDERED: Morphine 2 MG/ML SYRINGE IV ONE (07:23)
[2022-08-27] MEDS ORDERED: LORazepam 2 mg VIAL 1 ml IV PUSH ONE (07:44)
[2022-08-27] MEDS ORDERED: Lorazepam PYXIS KEY PRN (07:44)
[2022-08-27 08:16] LABS: TSH Ultra Thyroid Stim Horm 1.6 mcIU/mL (0.34-5.60)
[2022-08-27 08:17] LABS: Free T3 2.5 pg/mL (2.5-3.9)
[2022-08-27 08:18] LABS: Free T4 1.02 ng/dL (0.61-1.12)
[2022-08-27 10:35] LABS: Magnesium 1.4 mg/dL (1.9-2.7)
[2022-08-27] MEDS ORDERED: Potassium Chlor 20 meq TAB.ER PO ONE (10:35)
[2022-08-27] MEDS ORDERED: Magnesium Sulfate 2 gm BAG 2 GM/50 ML BAG IVPB ONE ×2 (11:10→12:32)
[2022-08-27] MEDS: Venlafaxine XR 75 mg PO SCH (11:43)
[2022-08-27] MEDS ORDERED: Magnesium Sulf 4 GM/100 ML IV 4,000 MG/100 ML BAG IVPB ONE (12:02)
[2022-08-27 13:18] LABS: HIV 4th Generation Nonreactive (Nonreactive)
[2022-08-27 14:12] LABS: Calcium 8.9 mg/dL (8.6-10.3); Creatinine, Serum 2.17 mg/dL (0.51-0.95); Potassium 4.2 mmol/L (3.5-5.0); eGFR CKD-EPI 26.4 (>60)
[2022-08-27 21:21] LABS: Urine Osmo 474 mOsm/kg (150-1150)
[2022-08-28 04:46] LABS: Hematocrit 33 % (35-47); Mean Corpuscular HGB Conc 33 g/dL (31-36); Mean Corpuscular Hemoglobin 31 pg (27-31); Mean Corpuscular Volume 92 fL (80-97); Mean Platelet Volume 9.5 fL (7.4-10.4); Platelet Count 294 10^3/uL (150-450); Red Blood Count 3.59 10^6 /uL (3.70-4.87); Red Cell Distribution Width 13 % (10-15)
[2022-08-28] MEDS ORDERED: Dextrose 50% Syringe 50 ml 25 GM/50 ML SYRINGE IV PUSH PRN (05:01)
[2022-08-28 05:08] LABS: Albumin/Globulin Ratio 1.2 (1-3); Calcium 8.6 mg/dL (8.6-10.3); Creatinine, Serum 3.34 mg/dL (0.51-0.95); Globulin 2.6 g/dL (2-4); Magnesium 3.1 mg/dL (1.9-2.7); Potassium 3.9 mmol/L (3.5-5.0); Total Bilirubin 0.3 mg/dL (0.2-1.0); Total Protein 5.6 g/dL (6.4-8.9); eGFR CKD-EPI 15.7 (>60)
[2022-08-28] MEDS: Venlafaxine XR 75 mg PO SCH (08:14)
[2022-08-28] MEDS ORDERED: Lactated Ringers 1000 ml BAG 1,000 ML IV SCH (10:00)
[2022-08-29 06:53] LABS: ABS Basophils 0.1 10^3/ul (0-0.2); ABS Eosinophils 0.4 10^3/ul (0-0.6); ABS Lymphocytes 3.6 10^3/ul (1.0-4.8); ABS Neutrophils 6.9 10^3/ul (1.5-7.7); Eosinophil % 3.2 %; Hematocrit 32 % (35-47); Hemoglobin 10.4 g/dL (12.0-16.0); Lymphocyte % 29.8 %; Mean Corpuscular HGB Conc 33 g/dL (31-36); Mean Corpuscular Hemoglobin 31 pg (27-31); Mean Corpuscular Volume 92 fL (80-97); Mean Platelet Volume 10.1 fL (7.4-10.4); Nucleated Red Blood Cells % 0.1; Platelet Count 287 10^3/uL (150-450); Red Blood Count 3.42 10^6 /uL (3.70-4.87); Red Cell Distribution Width 13 % (10-15); White Blood Count 11.9 10^3/uL (3.5-10.8)
[2022-08-29 07:19] LABS: Calcium 8.2 mg/dL (8.6-10.3); Creatinine, Serum 4.81 mg/dL (0.51-0.95); Magnesium 2.8 mg/dL (1.9-2.7); Potassium 4.8 mmol/L (3.5-5.0); eGFR CKD-EPI 10.2 (>60)
[2022-08-29] MEDS: Venlafaxine XR 75 mg PO SCH (09:03)
[2022-08-29 09:40] LABS: Ferritin 141.8 ng/mL (11-307)
[2022-08-29 12:03] LABS: Calcium 8.1 mg/dL (8.6-10.3); Creatinine, Serum 4.94 mg/dL (0.51-0.95); Potassium 4.4 mmol/L (3.5-5.0); eGFR CKD-EPI 9.8 (>60)
[2022-08-29] MEDS ORDERED: Buffered Lidocaine 1% SYRIN 1 ml INTRADERM ONE (14:00)
[2022-08-29] MEDS: Heparin 1,000 UNIT/ML 10 ml (10,000 UNITS) CATHLAB/DIALYSIS DIALYSIS ONE ×4 (15:26→18:30)
[2022-08-29 17:47] LABS: Hepatitis B Surface Antigen Nonreactive (Nonreactive)
[2022-08-29 18:04] LABS: Hepatitis B Surface Ab Immune (Immune)
[2022-08-29] MEDS ORDERED: Acetaminophen IV 1 GM/100ML 1,000 MG/100 ML BAG IV ONE (19:26)
[2022-08-29] MEDS ORDERED: Insulin GLARGINE 100 un/ml 10 ml VIAL SUBCUT SCH (21:00)
[2022-08-29] MEDS ORDERED: Lidocaine PATCH 5% PATCH TRANSDERM ONE (23:58)
[2022-08-30 06:21] LABS: ABS Basophils 0.1 10^3/ul (0-0.2); ABS Eosinophils 0.4 10^3/ul (0-0.6); ABS Lymphocytes 3.7 10^3/ul (1.0-4.8); ABS Monocytes 1.1 10^3/ul (0-0.8); ABS Neutrophils 7.2 10^3/ul (1.5-7.7); Hematocrit 33 % (35-47); Hemoglobin 10.8 g/dL (12.0-16.0); Lymphocyte % 29.9 %; Mean Corpuscular HGB Conc 33 g/dL (31-36); Mean Corpuscular Hemoglobin 30 pg (27-31); Mean Corpuscular Volume 93 fL (80-97); Mean Platelet Volume 9.5 fL (7.4-10.4); Nucleated Red Blood Cells % 0.1; Platelet Count 289 10^3/uL (150-450); Red Blood Count 3.57 10^6 /uL (3.70-4.87); Red Cell Distribution Width 13 % (10-15); White Blood Count 12.5 10^3/uL (3.5-10.8)
[2022-08-30 06:53] LABS: Calcium 8.1 mg/dL (8.6-10.3); Creatinine, Serum 3.22 mg/dL (0.51-0.95); Magnesium 2.1 mg/dL (1.9-2.7); Potassium 4.6 mmol/L (3.5-5.0); eGFR CKD-EPI 16.5 (>60)
[2022-08-30] MEDS: Venlafaxine XR 75 mg PO SCH (09:10)
[2022-08-31 06:40] LABS: ABS Basophils 0.1 10^3/ul (0-0.2); ABS Eosinophils 0.4 10^3/ul (0-0.6); ABS Lymphocytes 3.5 10^3/ul (1.0-4.8); ABS Monocytes 1.4 10^3/ul (0-0.8); ABS Neutrophils 8.4 10^3/ul (1.5-7.7); Eosinophil % 2.8 %; Hematocrit 35 % (35-47); Hemoglobin 11.4 g/dL (12.0-16.0); Lymphocyte % 25.5 %; Mean Corpuscular HGB Conc 33 g/dL (31-36); Mean Corpuscular Hemoglobin 31 pg (27-31); Mean Corpuscular Volume 93 fL (80-97); Mean Platelet Volume 10.1 fL (7.4-10.4); Platelet Count 308 10^3/uL (150-450); Red Blood Count 3.75 10^6 /uL (3.70-4.87); Red Cell Distribution Width 13 % (10-15); White Blood Count 13.8 10^3/uL (3.5-10.8)
[2022-08-31 06:58] LABS: Calcium 8.7 mg/dL (8.6-10.3); Creatinine, Serum 3.06 mg/dL (0.51-0.95); Potassium 4.4 mmol/L (3.5-5.0); eGFR CKD-EPI 17.5 (>60)
[2022-08-31] MEDS: Venlafaxine XR 75 mg PO SCH (10:40)
[2022-08-31] MEDS: Heparin 5000 UNITS/ML 1 mL VIAL SUBCUT SCH (20:38)
[2022-09-01 07:13] LABS: ABS Basophils 0.2 10^3/ul (0-0.2); ABS Eosinophils 0.4 10^3/ul (0-0.6); ABS Lymphocytes 3.4 10^3/ul (1.0-4.8); ABS Monocytes 1.3 10^3/ul (0-0.8); Eosinophil % 3.5 %; Hematocrit 34 % (35-47); Hemoglobin 11.2 g/dL (12.0-16.0); Mean Corpuscular HGB Conc 33 g/dL (31-36); Mean Corpuscular Hemoglobin 30 pg (27-31); Mean Corpuscular Volume 92 fL (80-97); Nucleated Red Blood Cells % 0.1; Platelet Count 309 10^3/uL (150-450); Red Blood Count 3.67 10^6 /uL (3.70-4.87); Red Cell Distribution Width 13 % (10-15); White Blood Count 11.2 10^3/uL (3.5-10.8)
[2022-09-01 07:18] LABS: Activated Partial Thrombo Time 28.1 seconds (26.0-38.0); INR 0.96 (0.88-1.18)
[2022-09-01 07:46] LABS: Calcium 8.8 mg/dL (8.6-10.3); Creatinine, Serum 2.63 mg/dL (0.51-0.95); Magnesium 1.8 mg/dL (1.9-2.7); Phosphorus 4.1 mg/dL (2.5-5.0)
[2022-09-01] MEDS: Heparin 5000 UNITS/ML 1 mL VIAL SUBCUT SCH ×2 (09:17→22:08)
[2022-09-01] MEDS: Venlafaxine XR 75 mg PO SCH ×2 (09:41→10:14)
[2022-09-01] MEDS ORDERED: Dextrose 50% Syringe 50 ml 25 GM/50 ML SYRINGE IV PUSH PRN ×3 (11:38→14:45)
[2022-09-01] MEDS ORDERED: Insulin GLARGINE 100 un/ml 10 ml VIAL SUBCUT SCH ×2 (15:00→21:00)
[2022-09-01 16:33] LABS: Calcium 8.6 mg/dL (8.6-10.3); Creatinine, Serum 2.44 mg/dL (0.51-0.95); Potassium 4.5 mmol/L (3.5-5.0)
[2022-09-01] MEDS ORDERED: INSULIN PUMP CONTROLLER SCH (18:00)
[2022-09-01] MEDS: INSULIN PUMP CONTROLLER SCH (18:01)
[2022-09-02] MEDS: INSULIN PUMP CONTROLLER SCH ×3 (07:29→17:30)
[2022-09-02 09:25] LABS: Calcium 9.1 mg/dL (8.6-10.3); Creatinine, Serum 2.27 mg/dL (0.51-0.95); Potassium 4.8 mmol/L (3.5-5.0)
[2022-09-02] MEDS: Venlafaxine XR 75 mg PO SCH (09:48)
[2022-09-02] MEDS: Heparin 5000 UNITS/ML 1 mL VIAL SUBCUT SCH ×2 (09:48→21:51)
[2022-09-02] MEDS ORDERED: Dextrose 50% Syringe 50 ml 25 GM/50 ML SYRINGE IV PUSH PRN ×2 (13:15→16:32)
[2022-09-02 17:14] LABS: Calcium 8.9 mg/dL (8.6-10.3); Creatinine, Serum 2.46 mg/dL (0.51-0.95); Potassium 4.5 mmol/L (3.5-5.0); eGFR CKD-EPI 22.7 (>60)
[2022-09-03 06:04] LABS: Hematocrit 32 % (35-47); Hemoglobin 10.9 g/dL (12.0-16.0); Mean Corpuscular HGB Conc 34 g/dL (31-36); Mean Corpuscular Hemoglobin 31 pg (27-31); Mean Corpuscular Volume 91 fL (80-97); Mean Platelet Volume 9.8 fL (7.4-10.4); Platelet Count 336 10^3/uL (150-450); Red Blood Count 3.54 10^6 /uL (3.70-4.87); Red Cell Distribution Width 13 % (10-15); White Blood Count 13.7 10^3/uL (3.5-10.8)
[2022-09-03 06:27] LABS: ABS Basophils 0.2 10^3/ul (0-0.2); ABS Eosinophils 0.6 10^3/ul (0-0.6); ABS Lymphocytes 5.1 10^3/ul (1.0-4.8); ABS Neutrophils 6.8 10^3/ul (1.5-7.7); Eosinophil % 4.5 %; Nucleated Red Blood Cells % 0.1
[2022-09-03] MEDS: Heparin 5000 UNITS/ML 1 mL VIAL SUBCUT SCH (09:07)
[2022-09-03] MEDS: INSULIN PUMP CONTROLLER SCH ×2 (09:07→12:00)
[2022-09-03] MEDS: Venlafaxine XR 75 mg PO SCH (09:08)
[2022-09-03 11:20] VITALS: BP 159/68
== END 2022-09-03 14:15 | disposition home or self-care (01) | DRG 246 ==
LOC: ED 18:37 → ICU 19:11 → CHICARD 21:21 → EDHOLD 21:34 → SUATTDRO 21:34 → ICU 21:35 → MEDTELE 08-29 00:01
PROVIDERS: ADMIT Internal Medicine; ATTEND Internal Medicine

== ENCOUNTER 2022-09-08 20:55 | Observation (INO) ==
[2022-09-08 21:28] LABS: ABS Basophils 0.2 10^3/ul (0-0.2); ABS Eosinophils 0.3 10^3/ul (0-0.6); ABS Lymphocytes 3.8 10^3/ul (1.0-4.8); ABS Monocytes 1.2 10^3/ul (0-0.8); ABS Neutrophils 10.4 10^3/ul (1.5-7.7); Eosinophil % 2.1 %; Hematocrit 33 % (35-47); Hemoglobin 10.6 g/dL (12.0-16.0); Lymphocyte % 23.8 %; Mean Corpuscular HGB Conc 32 g/dL (31-36); Mean Corpuscular Hemoglobin 30 pg (27-31); Mean Corpuscular Volume 93 fL (80-97); Mean Platelet Volume 9.3 fL (7.4-10.4); Platelet Count 402 10^3/uL (150-450); Red Blood Count 3.54 10^6 /uL (3.70-4.87); Red Cell Distribution Width 13 % (10-15)
[2022-09-08 21:32] LABS: INR 0.92 (0.88-1.18)
[2022-09-08 22:08] LABS: Albumin 3.4 g/dL (3.2-5.2); Albumin/Globulin Ratio 1.3 (1-3); Calcium 9.2 mg/dL (8.6-10.3); Creatinine, Serum 1.87 mg/dL (0.51-0.95); Globulin 2.6 g/dL (2-4); Potassium 4.5 mmol/L (3.5-5.0); Total Bilirubin 0.3 mg/dL (0.2-1.0); eGFR CKD-EPI 31.6 (>60)
[2022-09-08] MEDS ORDERED: Morphine 4 MG/ML VIAL (1 ml) IV ONE (23:25)
[2022-09-08 23:40] LABS: High Sensitivity Troponin 1 Hr 240 pg/mL (<15)
[2022-09-09] MEDS ORDERED: Heparin DRIP 25,000 UNITS BAG 25,000 UNITS/500 ML BAG IV SCH (01:15)
[2022-09-09] MEDS ORDERED: Morphine 2 MG/ML SYRINGE IV PRN (01:48)
[2022-09-09] MEDS ORDERED: Dextrose 50% Syringe 50 ml 25 GM/50 ML SYRINGE IV PUSH PRN ×2 (01:49→02:34)
[2022-09-09] MEDS ORDERED: Furosemide 40 mg/4 ml IV VIAL IV SLOW PU ONE (01:51)
[2022-09-09] MEDS ORDERED: Heparin 5000 UNITS/ML 1 mL VIAL IV SCH (02:00)
[2022-09-09 05:21] LABS: Hematocrit 31 % (35-47); Hemoglobin 10.3 g/dL (12.0-16.0); Mean Corpuscular HGB Conc 33 g/dL (31-36); Mean Corpuscular Hemoglobin 31 pg (27-31); Mean Corpuscular Volume 92 fL (80-97); Mean Platelet Volume 8.9 fL (7.4-10.4); Platelet Count 395 10^3/uL (150-450); Red Blood Count 3.38 10^6 /uL (3.70-4.87); Red Cell Distribution Width 13 % (10-15); White Blood Count 14.5 10^3/uL (3.5-10.8)
[2022-09-09 05:25] LABS: ABS Eosinophils 0.4 10^3/ul (0-0.6); ABS Lymphocytes 5.7 10^3/ul (1.0-4.8); ABS Monocytes 1.1 10^3/ul (0-0.8); ABS Neutrophils 7.3 10^3/ul (1.5-7.7); Eosinophil % 2.6 %; Lymphocyte % 39.4 %
[2022-09-09 05:56] LABS: Urine Appearance Cloudy; Urine Bilirubin Negative (Negative); Urine Blood 1+ (Negative); Urine Color Straw; Urine Glucose 3+(>=500 mg/dL) (Negative); Urine Ketones Negative (Negative); Urine Nitrite Negative (Negative); Urine Protein 2+(100 mg/dL) (Negative); Urine Specific Gravity 1.007 (1.002-1.030); Urine Urobilinogen Negative (Negative)
[2022-09-09 05:59] LABS: Urine Bacteria 3+ (Absent); Urine Red Blood Cell 3+(>10/hpf) (Absent); Urine Squamous Epithelial Cell Present (Absent); Urine White Blood Cell 3+(>20/hpf) (Absent)
[2022-09-09 06:34] LABS: Potassium 3.7 mmol/L (3.5-5.0)
[2022-09-09 06:42] LABS: Calcium 9.2 mg/dL (8.6-10.3)
[2022-09-09 06:49] LABS: Creatinine, Serum 1.81 mg/dL (0.51-0.95); eGFR CKD-EPI 32.8 (>60)
[2022-09-09] MEDS: Venlafaxine XR 75 mg PO SCH (08:56)
[2022-09-09] MEDS: Cholecalciferol (VIT D3) 1,000 unit TAB PO SCH (09:01)
[2022-09-09] MEDS ORDERED: Insulin GLARGINE 100 un/ml 10 ml VIAL SUBCUT ONE (12:55)
[2022-09-09] MEDS ORDERED: Labetalol IV 5 MG/ML 20 ml VIAL IV PUSH ONE (13:12)
[2022-09-10 05:56] LABS: ABS Basophils 0.2 10^3/ul (0-0.2); ABS Eosinophils 0.4 10^3/ul (0-0.6); ABS Lymphocytes 3.9 10^3/ul (1.0-4.8); ABS Neutrophils 8.2 10^3/ul (1.5-7.7); Eosinophil % 3.2 %; Hematocrit 36 % (35-47); Hemoglobin 11.8 g/dL (12.0-16.0); Lymphocyte % 28.7 %; Mean Corpuscular HGB Conc 33 g/dL (31-36); Mean Corpuscular Hemoglobin 31 pg (27-31); Mean Corpuscular Volume 93 fL (80-97); Mean Platelet Volume 9.1 fL (7.4-10.4); Platelet Count 442 10^3/uL (150-450); Red Blood Count 3.87 10^6 /uL (3.70-4.87); Red Cell Distribution Width 13 % (10-15); White Blood Count 13.7 10^3/uL (3.5-10.8)
[2022-09-10 06:29] LABS: C Reactive Protein 11.36 mg/L (<8.01); Calcium 9.3 mg/dL (8.6-10.3); Creatinine, Serum 1.82 mg/dL (0.51-0.95); Magnesium 1.6 mg/dL (1.9-2.7); Potassium 4.4 mmol/L (3.5-5.0); eGFR CKD-EPI 32.6 (>60)
[2022-09-10 06:59] LABS: Erythrocyte Sed Rate 57 mm/Hr (0-29)
[2022-09-10] MEDS ORDERED: Magnesium Sulf 4 GM/100 ML IV 4,000 MG/100 ML BAG IVPB ONE (07:18)
[2022-09-10] MEDS: Cholecalciferol (VIT D3) 1,000 unit TAB PO SCH (09:43)
[2022-09-10] MEDS: Venlafaxine XR 75 mg PO SCH (09:43)
[2022-09-10] MEDS ORDERED: Sulfamethox/Trimethoprim DS TAB 800/160 mg PO SCH (11:00)
[2022-09-10 12:33] VITALS: BP 152/98
== END 2022-09-10 13:26 | disposition home or self-care (01) ==
LOC: ED 20:55 → EDHOLD 20:55 → SUATTDRO 09-09 00:55 → MEDTELE 09-09 10:02
PROVIDERS: ADMIT Hospitalist; ATTEND Internal Medicine